=== PATIENT | female | born 1935 | race Caucasian/White ===

== ENCOUNTER → 2017-03-29 | Outpatient (CLI) | payer OTHER, MEDICAID | LOC: FIMAGING 11:29 | DX: Z12.31 Encounter for screening mammogram for malignant neoplasm of breast (principal) | CPT/HCPCS: G0202 ==

== ENCOUNTER 2018-02-14 16:21 | Inpatient (IN) | payer OTHER, MEDICAID ==
[2018-02-14] MEDS ORDERED: NS 500 ML IV ONE (16:25)
--- NOTE | 2018-02-14 16:31 | EDPHY ---
H & P Stated Complaint: sob/htn Time Seen by Provider: 02/14/18 16:25 HPI/ROS: CHIEF COMPLAINT: Shortness of breath, hypertension HISTORY OF PRESENT ILLNESS: The patient is an 82-year-old female with history of dimension bipolar and shtp-nm-yehjqih who is sent from the half-way according to paramedics for tachypnea and diaphoresis and high blood pressure. The patient denies having any chest pain or abdominal pain but does state that she feels slightly short of breath. She wears 2 L of oxygen at baseline and is satting 98% on 2 L. she denies recent fevers coughs. She he is a very poor historian. According to the medical record she does have a history of COPD and CVA and CHF. 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 REVIEW OF SYSTEMS: Constitutional: denies: chills, fever, recent illness, recent injury EENTM: denies: blurred vision, double vision, nose congestion Respiratory: denies: cough, shortness of breath Cardiac: denies: chest pain, irregular heart rate, lightheadedness, palpitations Gastrointestinal/Abdominal: denies: abdominal pain, diarrhea, nausea, vomiting, blood streaked stools Genitourinary: denies: dysuria, frequency, hematuria, pain Musculoskeletal: denies: joint pain, muscle pain Skin: denies: lesions, rash, jaundice, bruising Neurological: denies: headache, numbness, paresthesia, tingling, dizziness, weakness Hematologic/Lymphatic: denies: blood clots, easy bleeding, easy bruising Immunologic/allergic: denies: HIV/AIDS, transplant EXAM: GENERAL: obese and in no acute distress. HEAD: Atraumatic, normocephalic. EYES: Pupils equal round and reactive to light, extraocular movements intact, sclera anicteric, conjunctiva are normal. ENT: TMs normal, nares patent, oropharynx clear without exudates. Moist mucous membranes. NECK: Normal range of motion, supple without lymphadenopathy or JVD. LUNGS: Breath sounds clear to auscultation bilaterally and equal. No wheezes rales or rhonchi. HEART: Regular rate and rhythm without murmurs, rubs or gallops. ABDOMEN: Soft, nontender, normoactive bowel sounds. No guarding, no rebound. No masses appreciated. BACK: No CVA tenderness, no spinal tenderness, step-offs or deformities EXTREMITIES: Normal range of motion, no pitting or edema. No clubbing or cyanosis. NEUROLOGICAL: Cranial nerves II through XII grossly intact. Normal speech, normal gait. 5/5 strength, normal movement in all extremities, normal sensation PSYCH: Slightly confused, has difficulty answering most questions. SKIN: Warm, dry, normal turgor, no visible rashes or lesions. Source: Patient Exam Limitations: No limitations - Personal History Tetanus Vaccine Date: 2007 - Medical/Surgical History Hx Asthma: Yes Hx Chronic Respiratory Disease: Yes Hx Diabetes: No Hx Cardiac Disease: Yes Hx Renal Disease: Yes Hx Cirrhosis: No Hx Alcoholism: No Hx HIV/AIDS: No Hx Splenectomy or Spleen Trauma: No Other PMH: anemia, dementia, peripheral vascular disease, HTN, CKD, bipolar, GERD, CHF, COPD, asthma - Family History Significant Family History: No pertinent family hx - Social History Smoking Status: Unknown if ever smoked Alcohol Use: None Constitutional: Initial Vital Signs Temperature (C) 36.4 C 02/14/18 16:23 Heart Rate 77 02/14/18 16:23 Respiratory Rate 18 02/14/18 16:23 Blood Pressure 181/87 H 02/14/18 16:23 O2 Sat (%) 91 L 02/14/18 16:23 O2 Delivery Mode Nasal Cannula O2 (L/minute) 2 Allergies/Adverse Reactions: oxycodone HCl [From OxyContin] Allergy (Unknown, Verified 02/14/18 16:27) aspirin [Aspirin] Allergy (Verified 02/14/18 16:27) codeine [Codeine] Allergy (Verified 02/14/18 16:27) NSAIDS (Non-Steroidal Anti-Inflamma [Nsaids] Allergy (Verified 02/14/18 16:27) oxybutynin [Oxybutynin] Allergy (Verified 02/14/18 16:27) Medical Decision Making - Diagnostics EKG Interpretation: An EKG obtained and was read and documented in trace view. Please see trace view for full reading and report. Sinus rhythm, PVC, LVH, anterior fascicular block, poor baseline, similar to previous Imaging Results: Imaging Impressions Chest X-Ray 02/14/18 16:26 Impression: 1. Stable chest. 2. Possible abnormal abdominal bowel loops. If clinically indicated consider obtaining a two-view abdomen. Results discussed with Dr. Hidalgo. Chest/Thorax CTA 02/14/18 17:06 Impression: 1. Cardiomegaly and small pericardial effusion. 2. Multiple noncalcified pulmonary nodules involving multiple lobes bilaterally , largest measuring 7 x 7.5 mm in the superoposterior left upper lobe. The patient also has granulomas. These nodules are nonspecific. They may represent granulomas, inflammatory process, metastatic disease. Because the study is significantly degraded by patient motion, the nodules being part of a pulmonary edema process is also not excluded. It would be prudent to repeat a CT scan of the chest once acute clinical presentation has resolved. Findings and recommendations discussed with Darshan Hidalgo M.D., at 6:20 p.m. , on February 14, 2018. Final report concurs with initial preliminary interpretation. E:amm Imaging: Discussed imaging studies w/ commissioner of conciliation Radiologist ED Course/Re-evaluation: 4:50 p.m. the patient begins screaming "help me help me" if the she is left in the room alone. As soon as someone enters the room she denies having any complaints. If the doors closed she screams "do not close the door". 5:05 p.m. the patient tells me she feels fine and does not feel sick. Her D- dimer and troponin are elevated. I will obtain a CT scan and likely admit. 6:35 p.m. I discussed the case with Dr. Melita Prater who will admit for serial troponins and further workup. Differential Diagnosis: Partial list of the Differential diagnosis considered include but were not limited to; [] and although unlikely based on the history and physical exam, I also considered []. I discussed these differential diagnoses and the plan with the [patient] as well as the usual and expected course. The [patient understands] that the diagnosis is provisional and that in medicine we are not always correct and that further workup is often warranted. Usual and customary warnings were given. All of the [patient's] questions were answered. The [ patient was] instructed to return to the emergency department should the symptoms at all worsen or return, otherwise to followup with the physician as we discussed. - Data Points Laboratory Results: Laboratory Results 02/14/18 16:15 05/03/18 16:15 02/14/18 02/14/18 02/14/18 16:15 16:15 16:15 WBC 12.85 10^3/uL H 10^3/uL (3.80-9.50) RBC 3.75 10^6/uL L 10^6/uL (4.18-5.33) Hgb 11.1 g/dL L g/dL (12.6-16.3) Hct 35.1 % L % (38.0-47.0) MCV 93.6 fL fL (81.5-99.8) MCH 29.6 pg pg (27.9-34.1) MCHC 31.6 g/dL L g/dL (32.4-36.7) RDW 13.6 % % (11.5-15.2) Plt Count 224 10^3/uL 10^3/uL (150-400) MPV 10.3 fL fL (8.7-11.7) Neut % (Auto) 75.9 % H % (39.3-74.2) Lymph % (Auto) 17.3 % % (15.0-45.0) Alfalfa % (Auto) 5.4 % % (4.5-13.0) Eos % (Auto) 0.7 % % (0.6-7.6) Baso % (Auto) 0.3 % % (0.3-1.7) Nucleat RBC Rel Count 0.0 % % (0.0-0.2) Absolute Neuts (auto) 9.75 10^3/uL H 10^3/uL (1.70-6.50) Absolute Lymphs (auto) 2.22 10^3/uL 10^3/uL (1.00-3.00) Absolute Monos (auto) 0.70 10^3/uL 10^3/uL (0.30-0.80) Absolute Eos (auto) 0.09 10^3/uL 10^3/uL (0.03-0.40) Absolute Basos (auto) 0.04 10^3/uL 10^3/uL (0.02-0.10) Absolute Nucleated RBC 0.00 10^3/uL 10^3/uL (0-0.01) Immature Gran % 0.4 % % (0.0-1.1) Immature Gran # 0.05 10^3/uL 10^3/uL (0.00-0.10) PT 13.9 SEC SEC (12.0-15.0) INR 1.05 (0.83-1.16) APTT 31.4 SEC SEC (23.0-38.0) D-Dimer 5.13 ug/mLFEU H ug/mLFEU (0.00-0.50) Sodium 142 mEq/L mEq/L (135-145) Potassium 4.4 mEq/L mEq/L (3.5-5.2) Chloride 96 mEq/L L mEq/L (97-110) Carbon Dioxide 36 mEq/l H mEq/l (22-31) Anion Gap 10 mEq/L mEq/L (8-16) BUN 24 mg/dL H mg/dL (7-23) Creatinine 0.7 mg/dL mg/dL (0.6-1.0) Estimated GFR > 60 Glucose 213 mg/dL H mg/dL (70-100) Calcium 9.0 mg/dL mg/dL (8.5-10.4) Troponin I 0.072 ng/mL H ng/mL (0.000-0.034) NT-Pro-B Natriuret Pep 771 pg/mL H pg/mL (0-450) Medications Given: Discontinued Medications Sodium Chloride (Ns) 500 mls @ 1,000 mls/hr IV EDNOW ONE PRN Reason: Protocol Stop: 02/14/18 16:54 Last Admin: 02/14/18 16:31 Dose: 500 mls Lorazepam (Ativan Injection) 1 mg IVP EDNOW ONE Stop: 02/14/18 18:01 Last Admin: 02/14/18 18:02 Dose: 1 mg Departure - Departure Disposition: [facility] Acute Clinical Impression: Elevated troponin Condition: Fair
[2018-02-14 16:41] LABS: PLATELET COUNT 224 10^3/uL (150-400)
--- NOTE | 2018-02-14 16:41 | CPEKG ---
Heart Rate: 77 RR Interval: 779 P-R Interval: 209 QRSD Interval: 110 QT Interval: 428 QTC Interval: 485 P Fabens: 0 QRS Fabens: -62 T Wave Fabens: 94 EKG Severity - ABNORMAL ECG - EKG Impression: SINUS RHYTHM EKG Impression: VENTRICULAR PREMATURE COMPLEX EKG Impression: LEFT ANTERIOR FASCICULAR BLOCK EKG Impression: LEFT VENTRICULAR HYPERTROPHY EKG Impression: Similar to previous, poor baseline Electronically Signed By: Darshan Hidalgo 14-Feb-2018 17:10:57
[2018-02-14 16:50] LABS: INR 1.05 (0.83-1.16); PROTIME(PATIENT) 13.9 SEC (12.0-15.0)
[2018-02-14] MEDS ORDERED: IOPAMIDOL (ISOVUE 370) 100 ML BTL IV ONE (17:26)
[2018-02-14] MEDS ORDERED: LORazepam 2 MG/ML INJ ONE (17:51)
[2018-02-14] MEDS ORDERED: LORazepam 2 MG/ML INJ IVP ONE (18:00)
[2018-02-14] MEDS ORDERED: ACETAMINOPHEN 325 MG TAB PO PRN (20:41)
[2018-02-14] MEDS ORDERED: ONDANSETRON 4 MG/2 ML VIAL IVP PRN (20:41)
[2018-02-14] MEDS ORDERED: hydrALAZINE 20 MG/ML VIAL IVP PRN (20:42)
[2018-02-14] MEDS ORDERED: D50W 25 GM/50 ML VIAL IVP PRN (20:42)
[2018-02-14] MEDS ORDERED: FUROSEMIDE 20 MG/2 ML VIAL IVP ONE (20:45)
[2018-02-14] MEDS ORDERED: traMADol 50 MG TAB PO PRN (20:45)
[2018-02-14] MEDS: CARBOXYMETHYLCELLULOSE 1% 0.4 ML DROPERETTE OP SCH (21:29)
[2018-02-14] MEDS: DILTIAZEM 30 MG TAB PO SCH (21:29)
[2018-02-14] MEDS: ATORVASTATIN CALCIUM 20 MG TAB PO SCH (21:29)
[2018-02-14] MEDS: risperiDONE 1 MG TAB PO SCH (21:30)
--- NOTE | 2018-02-14 21:31 | GHP ---
[f rep st] HISTORY AND PHYSICAL DATE OF ADMISSION: 02/14/2018 CHIEF COMPLAINT: Shortness of breath. HISTORY: The patient is an 82-year-old [facility] resident at [facility]. They sent her to the em ergency room for shortness of breath. They also reported diaphoresis and blood pressures above her n ormal baseline. The patient is a poor historian due to her advanced dementia. She states she has vazquez d shortness of breath for 3 days, but cannot give any further history. She denies any chest pain. H er baseline oxygen requirement is 2 L. PAST MEDICAL HISTORY: 1. Stroke. 2. COPD, on 2 L. 3. Dementia. 4. Diabetes type 2. 5. Congestive heart failure. 6. Bipolar. MEDICATIONS: Please see computer record for the full detailed list. ALLERGIES: Oxycodone. SOCIAL HISTORY: No smoking. No alcohol. Lives at [facility]. MOLST form from [facility] states fu ll code. REVIEW OF SYSTEMS: A complete review of systems was obtained. The review of systems was negative on constitutional, HEENT, GI, pulmonary, cardiovascular, , hematology, skin, muscular, endocrine, and psych except for positives and negatives as in the HPI. FAMILY HISTORY: Reviewed and noncontributory to the presenting complaint. PHYSICAL EXAMINATION: GENERAL: Well-developed, well-nourished female, in no acute distress. VITAL SIGNS: Temperature 36.4, pulse 77, blood pressure 166/90, satting 95% on 2 L. EYES: Normal conjunc tivae. Pupils react to light. ENT: Normal ears and nose. Hearing intact. Normal teeth. Orophary nx moist. NECK: Trachea midline. No thyromegaly. CHEST: Normal effort. LUNGS: Clear to auscult ation bilaterally. CARDIOVASCULAR: Regular rhythm. No murmur. No lower extremity edema. ABDOMEN: Soft, nontender. No hepatosplenomegaly. SKIN: Warm, dry, intact. No rash. MUSCULOSKELETAL: No cyanosis or clubbing. Strength 5/5 in the upper and lower extremities. NEUROLOGIC: Cranial nerves intact. Normal sensation to light touch. PSYCHIATRIC: She is awake, alert, pleasant, and cooperat robert, but confused. Demented. Poor judgment and insight. Poor memory. LABORATORY DATA: White count 12.8, hematocrit 35.1, platelets 224. Sodium 142, potassium 4.4, chlor sven 96, bicarb 36, BUN 24, creatinine 0.7, glucose 213. Troponin is 0.072. BNP is 771. D-dimer is 5. INR is 1.05. EKG reviewed by me. My personal interpretation is a normal sinus rhythm and LVH. No acute ST or T-wave changes. Chest x-ray shows poor inspiration. Possible pulmonary edema. CT an giogram of the chest shows pulmonary nodules. Differential is infection versus pulmonary edema versu s metastases. ASSESSMENT AND PLAN: 1. Shortness of breath. Differential diagnosis is pulmonary edema versus anginal equivalent versus infection. I will give her an IV Lasix dose x1. We will follow serial troponins and check an echoca rdiogram. We will check a respiratory PCR. 2. Pulmonary nodules. Differential remains broad. Metastasis is in the differential. Since I saw her in the ER, it appears the ER had ordered a CT scan of the abdomen and pelvis, which has been perf ormed. It unclear to me what was the indication. Regardless, we can see on that CAT scan if there i s any further finding suggestive of malignancy. Recommendation is repeat CT scan of the chest when s he is clinically improved. 3. Troponin elevation. We will follow these serially. She is a poor interventional candidate. We will continue her medical management with Plavix, Coreg, and statin. 4. Diabetes type 2. Continue Lantus plus sliding scale insulin. 5. Chronic obstructive pulmonary disease. 2 L baseline. She denies ever being a smoker. I suspect there is also an element of obesity hypoventilation syndrome and her chronic respiratory failure. 6. Dementia, advanced. She is a very poor historian. 7. Hypertension. We will resume her home medications and follow closely to see if any titration nee ds to be adjusted. CODE STATUS: Full according to MOLST form. ADMISSION STATUS: 1. Observation. Re-evaluate tomorrow for ongoing need for hospitalization. 2. DVT prophylaxis. She is high risk. We will place on subcu Lovenox. /[id number]/MODL
[2018-02-14] MEDS: INSULIN REGULAR HUMAN 100 UNIT/ML UNIT SC SCH (22:32)
[2018-02-15 06:24] LABS: PLATELET COUNT 177 10^3/uL (150-400)
[2018-02-15] MEDS: SENNOSIDES/DOCUSATE SODIUM TAB PO SCH (10:24)
[2018-02-15] MEDS: VENLAFAXINE XR 150 MG CAP PO SCH (10:24)
[2018-02-15] MEDS: risperiDONE 1 MG TAB PO SCH ×2 (10:25→21:26)
[2018-02-15] MEDS: DILTIAZEM 30 MG TAB PO SCH ×2 (10:25→21:25)
[2018-02-15] MEDS: FUROSEMIDE 20 MG TAB PO SCH (10:26)
[2018-02-15] MEDS: CLOPIDOGREL BISULFATE 75 MG TAB PO SCH (10:26)
[2018-02-15] MEDS: CYANO/VITAMIN B12 1000 MCG TAB PO SCH (10:27)
[2018-02-15] MEDS: CARBOXYMETHYLCELLULOSE 1% 0.4 ML DROPERETTE OP SCH ×4 (10:27→21:26)
--- NOTE | 2018-02-15 10:27 | ECHO ---
[email or web address] [address] [address] Main: [phone] Fax: Transthoracic Echocardiogram Name: FRANCIE HATCH MR#: [id number] Study Date: 02/15/2018 Study Time: 06:44 AM Date of : 1935 Age: 82 year(s) Height: 162.6 cm (64 in.) Weight: 90.72 kg (200 lb.) BSA: 1.96 m2 Gender: Female Examination: Echo Indication: Shortness of breath, positive troponin Image Quality: Technically Difficult Contrast: Requested by: Melita Prater BP: 141 mmHg/52 mmHg Heart Rate: Rhythm: Normal sinus rhythm Indication: Shortness of breath, positive troponin Procedure Staff Windows Mobile Developer: Madonna Hassan [facility] Reading Physician: Manjeet Nair MD Requesting Provider: Conclusions: Concentric LV hypertrophy. Normal global systolic LV function. EF is 71 %. Grossly normal Mitral valve, no stenosis and no significant regurgitation. Cannot rule out bicuspid aortic valve. Mild calcific aortic valve stenosis. Small to moderate pericardial effusion. No echocardiographic evidence of hemodynamic compromise. Measurements: Chambers Valvular Assessment AV/MV Valvular Assessment TV/PV Normal Normal Normal Name Value Range Name Value Range Name Value Range Ao Natacha (MM): 2.6 cm (2.2 cm-3.7 AV Vmax: 2.47 m/s (1 m/s-1.7 PV Vmax: 1.57 m/s (0.6 m/s-0.9 cm) m/s) m/s) IVSd (2D): 1.0 cm (0.6 cm-1.1 AV maxP mmHg ( - ) PV PGmax: 10 mmHg ( - ) cm) AV meanP mmHg ( - ) LVDd (2D): 4.2 cm (3.9 cm-5.3 NIKITA (VTI): 1.0 cm ( - ) cm) MV E Vmax: 0.76 m/s ( - ) LVDs (2D): 2.5 cm (2.1 cm-4 MV A Vmax: 1.32 m/s ( - ) cm) MV E/A: 0.58 ( - ) LVPWd (2D): 1.0 cm ( - ) LVOTd 2.0 cm 2.0 cm mm LVEF (2D): 71 (>=54 %) Continued Measurements: Additional Vessels Patient: FRANCIE HATCH Study Date: 02/15/2018 Page 1 of 2 06:44 AM Name Value Ao Ascendin.1 cm Findings: Left Ventricle: Normal size left ventricle. Concentric LV hypertrophy. Normal global systolic LV function. EF is 71 %. Cannot rule out wall motion abnormalities due to poor acoustical window.. Right Ventricle: Normal size right ventricle. Normal RV function. Left Atrium: The left atrium is mildly dilated. Right Atrium: The right atrium is normal in size. Mitral Valve: Grossly normal Mitral valve, no stenosis and no significant regurgitation. Aortic Valve: Cannot rule out bicuspid aortic valve. Moderate aortic cusp calcification is present. There is no significant aortic valve regurgitation. Mean aortic valve gradient 17. Mild calcific aortic valve stenosis. Tricuspid Valve: Tricuspid valve not well visualized. There is no tricuspid valve regurgitation. Pulmonary artery pressure is not obtained due to inadequate TR jet. Pulmonic Valve: Pulmonary valve not well visualized. Aorta: The aorta is normal. Normal size aortic root measuring 2.6 cm. Normal size ascending aorta measuring 2.1 cm. Pericardium: Small to moderate pericardial effusion. No echocardiographic evidence of hemodynamic compromise. (No Signature Object) Patient: FRANCIE HATCH Study Date: 02/15/2018 Page 2 of 2 06:44 AM [id number]
[2018-02-15] MEDS: INSULIN REGULAR HUMAN 100 UNIT/ML UNIT SC SCH ×4 (10:28→21:27)
[2018-02-15] MEDS: ENOXAPARIN 40 MG/0.4 ML SYR SC SCH (10:28)
[2018-02-15] MEDS: traMADol 50 MG TAB PO SCH ×2 (10:32→18:31)
[2018-02-15] MEDS: CARVEDILOL 6.25 MG TAB PO SCH ×2 (10:33→18:31)
[2018-02-15] MEDS: INSULIN GLARGINE 100 UNITS/ML UNIT SC SCH (12:34)
--- NOTE | 2018-02-15 14:26 | HOSPPROG ---
Hospitalist Progress Note Assessment/Plan: # acute hypoxic respiratory failure- patient's symptomatically improved this morning Chest x-ray ( personally reviewed and interpreted) pulmonary edema - CT chest -no pulmonary embolism - responded well to IV push Lasix overnight - continue home p.o. Lasix today - transthoracic echocardiogram pending # indeterminate troponin- patient denies chest pain- EKG without acute changes Agree patient poor interventional candidate- continue med management - continue Plavix, statin, Coreg - monitor on telemetry # COPD- no clinical indicators of acute exacerbation- no wheezing on examination -p.r.n. Bronchodilators # baseline dementia # pulmonary nodules- seen on CT chest imaging will need outpatient radiographic follow-up # prophylaxis Lovenox # diet regular # disposition- greater than 2 midnights as the patient requires ongoing diagnostic workup and care for hypoxia I have discussed the case with the RN we are awaiting transthoracic echocardiogram results - continue current care Subjective: Denies chest pain Objective: Vital Signs Temp Pulse Resp BP Pulse Ox 36.4 C 83 20 157/66 H 97 02/15/18 11:30 02/15/18 11:30 02/15/18 11:30 02/15/18 11:30 02/15/18 11:30 Microbiology 02/14/18 21:30 Respiratory Panel (PCR) - Final Nasal, Sinus - Eswab No Organism Detected Laboratory Results 02/15/18 06:08 02/15/18 06:08 02/14/18 02/15/18 02/16/18 05:59 05:59 05:59 Intake Total 1000 340 Balance 1000 340 PT 13.9 SEC (12.0-15.0) 02/14/18 16:15 INR 1.05 (0.83-1.16) 02/14/18 16:15 - Physical Exam Constitutional: chronically ill appearing Eyes: anicteric sclera Ears, Nose, Mouth, Throat: moist mucous membranes Cardiovascular: regular rate and rhythym, systolic murmur Respiratory: no respiratory distress Gastrointestinal: normoactive bowel sounds Genitourinary: no bladder fullness Skin: warm Musculoskeletal: No asymmetric calves Neurologic: No AAOx3 Psychiatric: poor memory Lymph, Heme, Immunologic: no cervical LAD ICD10 Worksheet Patient Problems: Problems Problem Status Onset Elevated troponin Acute
[2018-02-15] MEDS ORDERED: IPRATROPIUM/ALBUTEROL 3 ML DEYVIAL IH PRN (14:28)
--- NOTE | 2018-02-15 14:32 | ASMTCASEMG ---
Living Arrangements What is your living Answers: Alone arrangement? Who do you live with? Type Of Residence What kind of residence do Answers: [facility] Facility you live in? Type of Residence Facility Name Notes: [facility] Discharge Plan Comments Coordination Status Comments Notes: Pts case discussed in tx rounds. Pt is a 82 y/o female admitted for shortness of breath and troponin elevation. Pt is having an echo today. OT has been ordered. PT is a LTC pt at [facility]. Updates sent to [facility]. CM to follow. Plan: [facility] Date Signed: 02/15/2018 02:32 PM Electronically Signed By:RIN Adan
--- NOTE | 2018-02-15 15:26 | PDMN ---
Medical Necessity Medical necessity: Patient transitioned to inpatient status per physician note and per CMS guidelines: LOS will be > 2 midnights for ongoing diagnostic workup and care for hypoxia; TTE pending, transition from IV to p.o Lasix; ongoing Plavix, statin, Coreg and telemetry for indeterminate troponin in patient who is poor interventional candidate.)
[2018-02-15] MEDS: ATORVASTATIN CALCIUM 20 MG TAB PO SCH (21:25)
[2018-02-16] MEDS: CARBOXYMETHYLCELLULOSE 1% 0.4 ML DROPERETTE OP SCH ×3 (06:22→16:49)
[2018-02-16] MEDS: INSULIN REGULAR HUMAN 100 UNIT/ML UNIT SC SCH ×2 (07:59→11:48)
[2018-02-16] MEDS: INSULIN GLARGINE 100 UNITS/ML UNIT SC SCH (08:00)
[2018-02-16] MEDS: VENLAFAXINE XR 150 MG CAP PO SCH (08:00)
[2018-02-16] MEDS: FUROSEMIDE 20 MG TAB PO SCH (08:00)
[2018-02-16] MEDS: ENOXAPARIN 40 MG/0.4 ML SYR SC SCH (08:00)
[2018-02-16] MEDS: CYANO/VITAMIN B12 1000 MCG TAB PO SCH (08:01)
[2018-02-16] MEDS: CARVEDILOL 6.25 MG TAB PO SCH (08:01)
[2018-02-16] MEDS: CLOPIDOGREL BISULFATE 75 MG TAB PO SCH (08:01)
[2018-02-16] MEDS: risperiDONE 1 MG TAB PO SCH (08:04)
[2018-02-16] MEDS: DILTIAZEM 30 MG TAB PO SCH (08:04)
[2018-02-16] MEDS: SENNOSIDES/DOCUSATE SODIUM TAB PO SCH (08:05)
[2018-02-16] MEDS: traMADol 50 MG TAB PO SCH ×2 (08:05→16:49)
--- NOTE | 2018-02-16 13:09 | PDIAF ---
- Diagnosis Diagnosis: CHF exac Code Status: Full Code - Medication Management Discharge Medications: Medications to Continue on Transfer Acetaminophen [Tylenol 325mg (*)] 650 mg PO Q4 PRN 02/14/18 [Last Taken Unknown] Albuterol [Proventil Inhaler HFA (*)] 2 puffs IH Q6 PRN 02/14/18 [Last Taken Unknown] Atorvastatin Calcium 20 mg PO HS 02/14/18 [Last Taken Unknown] Bisacodyl [Dulcolax] 10 mg RC DAILY PRN 02/14/18 [Last Taken Unknown] Carboxymethylcellulose 1% [Refresh Celluvisc (*)] 2 drop OP QID 02/14/18 [Last Taken Unknown] Carvedilol 6.25 mg PO BIDMEAL 02/14/18 [Last Taken Unknown] Cholecalciferol Vit D3 [Vitamin D3 (*)] 50,000 unit PO Q30D 02/14/18 [Last Taken 02/12/18] Clopidogrel Bisulfate [Clopidogrel] 75 mg PO DAILY 02/14/18 [Last Taken Unknown] Cyanocobalamin [Vitamin B12 (*)] 1,000 mcg PO DAILY 02/14/18 [Last Taken Unknown ] Dextrose Oral Gel [Glucose Gel (*)] 15 gm PO Q1 PRN 02/14/18 [Last Taken Unknown ] Diltiazem [Cardizem Ir Q6hr] 30 mg PO BID 02/14/18 [Last Taken Unknown] Glucagon,Human Recombinant [Glucagon Emergency Kit] 1 mg IJ ONCE PRN 02/14/18 [ Last Taken Unknown] Insulin Detemir [Levemir] 6 unit SQ DAILY 02/14/18 [Last Taken Unknown] Magnesium Hydroxide [Milk of Magnesia] 30 ml PO DAILY PRN 02/14/18 [Last Taken Unknown] Meclizine HCl [Meclizine HCl 25 mg (RX,OTC)] 25 mg PO Q4 PRN 02/14/18 [Last Taken Unknown] Multivitamins [Multivitamin (*)] 1 each PO DAILY 02/14/18 [Last Taken Unknown] Nystatin [Nystop] 1 johanna TP BID PRN 02/14/18 [Last Taken Unknown] Polyethylene Glycol 3350 [Miralax 17 gm (*)] 17 gm PO DAILY PRN 02/14/18 [Last Taken Unknown] Sennosides/Docusate Sodium [Senna-S Tablet] 2 each PO DAILY 02/14/18 [Last Taken Unknown] Venlafaxine Xr [Effexor Xr] 150 mg PO DAILY 02/14/18 [Last Taken Unknown] risperiDONE [Risperdal 0.5mg (*)] 0.5 mg PO DAILY 02/14/18 [Last Taken Unknown] risperiDONE [Risperdal 1mg (*)] 1 mg PO HS 02/14/18 [Last Taken Unknown] traMADol HCL [Tramadol HCl] 50 mg PO BID@0800,1700 02/14/18 [Last Taken Unknown] traMADol HCL [Tramadol HCl] 50 mg PO Q6 PRN 02/14/18 [Last Taken Unknown] Furosemide [Lasix 40 MG (*)] 40 mg PO DAILY #30 tab 02/16/18 [Last Taken Unknown ] Discharge Medications: Refer to the Discharge Home Medication list for PRN reason. - Orders Diet Recommendation: sodium restricted Additional Instructions: Repeat CT chest in 3 months - Follow Up Care Current Providers and Referrals: NISHA KUNZ [Other] - As per Instructions
--- NOTE | 2018-02-16 13:29 | GDS ---
[f rep st] DISCHARGE SUMMARY DISCHARGE DIAGNOSES: 1. Sjonm-zk-jlrhjzv diastolic congestive heart failure. 2. Bilateral pulmonary nodules. 3. Borderline troponin elevation. 4. Mhfyb-uq-zxhutqin pericardial effusion. 5. Diabetes, type 2. 6. Chronic obstructive pulmonary disease, 2 L. 7. Advanced dementia. 8. Hypertension. HISTORY: Carmela is an 82-year-old female, [facility] resident, with advanced dementia, who complains of shortness of breath and was sent to the emergency room. History is limited due to the patient's dementia. She was thought to have some mild diastolic congestive heart failure and improved with demarcus e IV Lasix. I will increase her usual home Lasix dose from 20 to 40 mg p.o. daily. She had a CT ang iogram of the chest that was negative for PE. Incidentally noted were some pulmonary nodules which c an be followed up as an outpatient. Echocardiogram was relatively unremarkable, except for a small-t o-moderate pericardial effusion. This is of unclear significance, as she otherwise did not have any signs or symptoms of pericarditis. She is felt to be back to baseline at the time of discharge. DISCHARGE MEDICATIONS: Please see computerized record for full detailed list. New medications: Lasix increased from 20 to 40 mg p.o. daily. ADDITIONAL DISCHARGE INSTRUCTIONS: 1. Return to [facility] for further long-term care. 2. Repeat CT scan of chest in 3 months. Greater than 30 minutes' time was spent arranging this discharge. Patient was seen and examined by cruz forbes on the day of discharge. /[id number]/MODL
[2018-02-16 15:04] VITALS: BP 129/51
--- NOTE | 2018-02-16 17:14 | ASMTLACE ---
LACE Length of stay for Answers: 2 days current admission Comorbidities - select Answers: Cerebrovascular disease all that apply (CVA, TIA, aneurysms, vasc ular dementia) Chronic pulmonary disease Congestive heart failure Dementia Peripheral vascular disease Other Notes: HTN; CKD # of Emergency department Answers: 1-2 visits in the last 6 months Social determinants Answers: Mental health diagnosis (anxiety, depression, pers onality disorders, etc.) Score: 16 Date Signed: 02/16/2018 05:13 PM Electronically Signed By:Kajal Estevez RN
--- NOTE | 2018-02-16 17:17 | ASDISCHSUM ---
Discharge Information Plan Status:SNF Medically Cleared to Leave: Discharge Date:02/16/2018 05:13 PM D/C Disposition:Group Home Facility ADT D/C Disposition:Group Home Facility Projected Discharge Date:02/16/2018 11:00 AM Transportation at D/C:ALS/BLS Discharge Delay Reason: Follow-Up Date:02/16/2018 11:00 AM Discharge Slot: Final Diagnosis: Placement Information Referral Type:*Residential/SNF Referral ID:[id number] Provider Name:[facility] Address 1:[address] [place] [address] Address 2: City:[place] Selection Factors: State:[place] Patient Contact Information Contact Name:PITO Relationship:Other Address:[address] [place] [address] Work Phone: City:[place] Alternate Phone: State/Zip Code:[place] [address] Email: Financial Information Financial Class:Medicare Advantage Plans Primary Plan Desc:Anywhere to Go Primary Plan Number:[id number] Secondary Plan Desc:MED[place] Secondary Plan Number:[id number] Assessment Information LACE LACE Length of stay for Answers: 2 days current admission Comorbidities - select Answers: Cerebrovascular disease all that apply (CVA, TIA, aneurysms, vasc ular dementia) Chronic pulmonary disease Congestive heart failure Dementia Peripheral vascular disease Other Notes: HTN; CKD # of Emergency department Answers: 1-2 visits in the last 6 months Social determinants Answers: Mental health diagnosis (anxiety, depression, pers onality disorders, etc.) Score: 16 Date Signed: 02/16/2018 05:13 PM Electronically Signed By:Kajal Estevez RN [facility] Initial CM Assessment Living Arrangements What is your living Answers: Alone arrangement? Who do you live with? Type Of Residence What kind of residence do Answers: Group Home Facility you live in? Type of Residence Facility Name Notes: [facility] Discharge Plan Comments Coordination Status Comments Notes: Pts case discussed in tx rounds. Pt is a 82 y/o female admitted for shortness of breath and troponin elevation. Pt is having an echo today. OT has been ordered. PT is a LTC pt at [facility]. Updates sent to [facility]. CM to follow. Plan: [facility] Date Signed: 02/15/2018 02:32 PM Electronically Signed By:RIN Adan Case Management Discharge Plan Note Case Management Discharge Discharge Order Complete? Answers: Yes Patient to Obtain Answers: Other Notes: [facility] Medications Transportation Arranged Answers: [facility] will Pick (Date 02/16/2018 04:30 AM & Time) Case Management Transport Answers: Yes Form Complete Discharge Comments Notes: Pt will dc back to [facility] where she is LTC resident. Notified Nancy at and they are ready to accept back. Orders/info sent through [employer]. Discussed w/RN who will call report to . Date Signed: 02/16/2018 02:28 PM Electronically Signed By:Kajal Estevez RN Intervention Information
== END 2018-02-16 17:13 | DRG 291 ==
LOC: EDUNIT# → OBSVTOIN 18:35 → F2W 19:45
PROVIDERS: ADMIT Internal Medicine; ATTEND Internal Medicine
DX: I13.0 Hypertensive heart and chronic kidney disease with heart failure and stage 1 through stage 4 chronic kidney disease, or unspecified chronic kidney disease (principal); I50.33 Acute on chronic diastolic (congestive) heart failure; N18.9 Chronic kidney disease, unspecified; J96.01 Acute respiratory failure with hypoxia; E11.51 Type 2 diabetes mellitus with diabetic peripheral angiopathy without gangrene; I73.9 Peripheral vascular disease, unspecified; K21.9 Gastro-esophageal reflux disease without esophagitis; F03.90 Unspecified dementia, unspecified severity, without behavioral disturbance, psychotic disturbance, mood disturbance, and anxiety; R91.8 Other nonspecific abnormal finding of lung field; F31.9 Bipolar disorder, unspecified; Z86.73 Personal history of transient ischemic attack (TIA), and cerebral infarction without residual deficits; Z99.81 Dependence on supplemental oxygen
CPT/HCPCS: 96374; 97161-GP; G0378; G8978-GP-CM; G8979-GP-CM; G8980-GP-CM; J1650; J1815; J1940; J2060; Q9967

== ENCOUNTER 2018-10-17 05:26 | Inpatient (IN) | payer OTHER, MEDICAID ==
--- NOTE | 2018-10-17 05:39 | EDPHY ---
H & P Time Seen by Provider: 10/17/18 05:39 HPI/ROS: HPI CHIEF COMPLAINT: Hypertension, shortness of breath, from [facility] HISTORY OF PRESENT ILLNESS: 83-year-old female, advanced dementia history of diabetes, COPD, advanced dementia, diastolic heart failure presents emergency for [facility]. She is a full code. She presents for shortness of breath and hypertension. Upon arrival it is noted that her blood pressure is 214/110. Heart rate 101. Pulse ox 95% 2 L She arrives to emergency room stating nothing is wrong. When asking the patient questions she does move everything appropriately however she states "I WISH YOU WOULD STOP YELLING AT ME" Past Medical History: COPD, advance dementia, hypertension, diabetes, diastolic heart failure Past Surgical History: No recent surgery Social History: Resides at [facility]. Advanced dementia Family History: Noncontributory ROS REVIEW OF SYSTEMS: 10 Systems were reviewed and negative with the exception of the elements mentioned in the history of present illness. Exam Constitutional elderly, nontoxic, slow to respond, triage nursing summary reviewed, vital signs reviewed, awake/alert. Hypertensive upon arrival. Eyes normal conjunctivae and sclera, EOMI, PERRLA. HENT normal inspection, atraumatic, moist mucus membranes, no epistaxis, neck supple/ no meningismus, no raccoon eyes. Respiratory clear to auscultation bilaterally, normal breath sounds, no respiratory distress, no wheezing. Cardiovascular rate normal, regular rhythm, no murmur, no edema, distal pulses normal. Gastrointestinal soft, non-tender, no rebound, no guarding, normal bowel sounds, no distension, no pulsatile mass. Genitourinary no CVA tenderness. Musculoskeletal no midline vertebral tenderness, full range of motion, no calf swelling, no tenderness of extremities, no meningismus, good pulses, neurovascularly intact. Skin pink, warm, & dry, no rash, skin atraumatic. Neurologic alert or x1, slow to respond, moves all 4 extremities equally, motor intact, sensory intact, CN II-XII intact, normal cerebellar, normal vision , normal speech. Psychiatric normal mood/affect. Heme/Lymph/Immune no lymphadenopathy. Differential Diagnosis: Includes but is not limited to in a particular order hypertension urgency, pneumonia, COPD, CHF, volume overload, PE Medical Decision Making: Plan for this patient IV establishment, cardiac nurse specialist, oxygen, DuoNeb breathing treatment, IV hydralazine for hypertension supplemental oxygen re-evaluation. Re-evaluation: Chest x-ray reviewed, cardiomegaly. EKG interpretation by me on record in [employer] system. Impression time of EKG 5:53 a.m., sinus rhythm rate of 98 LVH right bundle-branch block, left anterior fascicular block no acute ischemia. Fluids held. Concern for congestive heart failure. Hypertension. D-dimer elevated 7.69. In the setting of shortness of breath, fever, hypoxia with an elevated D-dimer at 7.[address] angiogram chest. Troponin negative BNP: Elevated. IV Lasix ordered. Fluids have been held. Plan for admission for hypoxia, CHF, elevated D-dimer. 0720AM: 83-year-old female here in emergency room shortness of breath, hypertension. Patient's hypertension has improved with IV Lasix IV hydralazine Noted D-dimer is elevated 7.69 CT angiogram of the chest is pending. I have consult the hospitalist service spoke with Gracie, Who would like to admit patient to Dr. jameson. Plan for admission PCU telemetry monitoring. CT angiogram pending at time of admission. CT angiogram results called to me by Dr. Garcia this shows no evidence of PE. However shows the following Right lower lobe pneumonia Bronchitis with mucus plugging Pleural effusion right lower lobe Pericardial effusion small Pulmonary nodule stable from previous CT Plan for this patient she is here with hypertension, hypoxia appears to be volume overloaded, additionally has a right lower lobe atelectasis versus pneumonia. Blood cultures have been pulled. IV Levaquin ordered Patient be admitted to the hospitalist service for further evaluation. Dr. Jameson accepts. Source: Patient, EMS - Personal History Tetanus Vaccine Date: 2007 - Medical/Surgical History Hx Asthma: Yes Hx Chronic Respiratory Disease: Yes Hx Diabetes: No Hx Cardiac Disease: Yes Hx Renal Disease: Yes Hx Cirrhosis: No Hx Alcoholism: No Hx HIV/AIDS: No Hx Splenectomy or Spleen Trauma: No Other PMH: anemia, dementia, peripheral vascular disease, HTN, CKD, bipolar, GERD, CHF, COPD, asthma - Social History Smoking Status: Unknown if ever smoked Constitutional: Initial Vital Signs O2 Sat (%) 94 10/17/18 05:43 O2 Delivery Mode Nasal Cannula O2 (L/minute) 2 Allergies/Adverse Reactions: oxycodone HCl [From OxyContin] Allergy (Unknown, Verified 10/17/18 05:47) aspirin [Aspirin] Allergy (Verified 10/17/18 05:47) codeine [Codeine] Allergy (Verified 10/17/18 05:47) NSAIDS (Non-Steroidal Anti-Inflamma [Nsaids] Allergy (Verified 10/17/18 05:47) oxybutynin [Oxybutynin] Allergy (Verified 10/17/18 05:47) Home Medications: Medication Instructions Recorded Acetaminophen [Tylenol 325mg (*)] 650 mg PO Q4 PRN 02/14/18 Albuterol [Proventil Inhaler HFA 2 puffs IH Q6 PRN 02/14/18 (*)] Bisacodyl [Dulcolax] 10 mg RC DAILY PRN 02/14/18 Carboxymethylcellulose 1% [Refresh 1 drop OP DAILY PRN 02/14/18 Celluvisc (*)] Carvedilol 6.25 mg PO BIDMEAL 02/14/18 Cholecalciferol Vit D3 [Vitamin D3 50,000 unit PO Q30D 02/14/18 (*)] Clopidogrel Bisulfate [Clopidogrel] 75 mg PO DAILY 02/14/18 Dextrose Oral Gel [Glucose Gel (*)] 15 gm PO Q1 PRN 02/14/18 Glucagon,Human Recombinant 1 mg IJ ONCE PRN 02/14/18 [Glucagon Emergency Kit] Insulin Detemir [Levemir] 6 unit SQ DAILY 02/14/18 Magnesium Hydroxide [Milk of 30 ml PO DAILY PRN 02/14/18 Magnesia] Nystatin [Nystop] 1 johanna TP BID PRN 02/14/18 Polyethylene Glycol 3350 [Miralax 17 gm PO DAILY PRN 02/14/18 17 gm (*)] Sennosides/Docusate Sodium 2 each PO DAILY 02/14/18 [Senna-S Tablet] Venlafaxine Xr [Effexor Xr] 150 mg PO DAILY 02/14/18 Furosemide [Lasix 40 MG (*)] 40 mg PO DAILY #30 tab 02/16/18 Ativan Solution 2mg/Ml 0.25 ml PO BID PRN 10/17/18 Atorvastatin Calcium [Lipitor 10 10 mg PO DAILY 10/17/18 mg (*)] Benzocaine/Menthol 15/4 [Cepacol 1 mg PO Q4HRS PRN 10/17/18 Lozenge (OTC)] Carboxymethylcellulose 1% [Refresh 2 drop EACHEYE QID 10/17/18 Celluvisc (*)] Diltiazem [Cardizem Immediate 30 mg PO BID 10/17/18 Release] Furosemide [Lasix 20 MG (*)] 20 mg PO DAILY PRN 10/17/18 Herbals/Supplements -Info Only 1 ea PO DAILY 10/17/18 Lisinopril [Zestril 2.5 mg (*)] 2.5 mg PO DAILY 10/17/18 Morphine Sulfate 20mg/Ml Galilea 0.25 ml PO BID 10/17/18 Morphine Sulfate 20mg/Ml Galilea 0.25 ml PO Q4HRS PRN 10/17/18 OLANZapine [Zyprexa] 5 mg PO HS 10/17/18 morphINE SR [Ms Contin/Oramorph 15 15 mg PO HS 10/17/18 mg (*)] Medical Decision Making - Data Points Laboratory Results: Laboratory Results 10/17/18 05:45 10/17/18 05:45 Medications Given: Acetaminophen (Tylenol) 650 mg PO Q4HRS PRN PRN Reason: Pain, Mild/Fever, Can Take PO Stop: 04/15/19 08:16 Last Admin: 10/17/18 09:21 Dose: 650 mg Atorvastatin Calcium (Lipitor) 10 mg PO DAILY [facility] Stop: 04/16/19 08:59 Last Admin: 10/19/18 08:35 Dose: 10 mg Carboxymethylcellulose (Refresh Celluvisc) 2 drop EACHEYE QID [facility] Stop: 04/15/19 15:59 Last Admin: 10/19/18 20:12 Dose: 2 drop Carvedilol (Coreg) 6.25 mg PO BIDMEAL [facility] Stop: 04/15/19 17:59 Last Admin: 10/19/18 17:21 Dose: 6.25 mg Clopidogrel Bisulfate (Plavix) 75 mg PO DAILY [facility] Stop: 04/16/19 08:59 Last Admin: 10/19/18 08:35 Dose: 75 mg Diltiazem HCl (Cardizem Immediate Release) 30 mg PO BID [facility] Stop: 04/15/19 20:59 Last Admin: 10/19/18 20:12 Dose: 30 mg Enoxaparin Sodium (Lovenox) 40 mg SC DAILY LO Stop: 04/15/19 08:59 Last Admin: 10/19/18 08:36 Dose: 40 mg Furosemide (Lasix) 40 mg PO DAILY LO Stop: 04/16/19 08:59 Last Admin: 10/19/18 08:37 Dose: 40 mg Insulin Glargine (Lantus Syringe) 6 units SC DAILY LO Stop: 04/16/19 08:59 Last Admin: 10/19/18 08:37 Dose: 6 units Lisinopril (Zestril) 2.5 mg PO DAILY LO Stop: 04/16/19 08:59 Last Admin: 10/19/18 08:37 Dose: 2.5 mg Morphine Sulfate (Ms Contin/Oramorph) 15 mg PO HS [facility] Stop: 10/27/18 20:59 Last Admin: 10/19/18 20:13 Dose: 15 mg Morphine Sulfate (Roxanol Oral Solution) 0.25 mg PO Q4HRS PRN PRN Reason: Pain, Breakthrough Last Admin: 10/20/18 00:16 Dose: 0.25 mg Morphine Sulfate (Roxanol Oral Solution) 0.25 mg PO BID LO Stop: 04/15/19 20:59 Last Admin: 10/19/18 20:13 Dose: 0.25 mg Olanzapine (Olanzapine) 5 mg PO HS [facility] Stop: 04/15/19 20:59 Last Admin: 10/19/18 20:13 Dose: 5 mg Ondansetron HCl (Zofran Odt) 4 mg PO Q4HRS PRN PRN Reason: Nausea/Vomiting, Use 1st Stop: 04/15/19 08:16 Last Admin: 10/18/18 19:20 Dose: 4 mg Prednisone (Prednisone) 40 mg PO DAILY LO Stop: 04/17/19 12:29 Last Admin: 10/19/18 15:05 Dose: 40 mg Senna/Docusate Sodium (Senokot-S) 2 tab PO DAILY LO Stop: 04/16/19 08:59 Last Admin: 10/19/18 08:36 Dose: 2 tab Throat Lozenges (Cepacol Lozenge) 1 ea PO Q4HRS PRN PRN Reason: cough/sore throat Stop: 04/15/19 13:08 Last Admin: 10/20/18 00:16 Dose: 1 ea Venlafaxine HCl (Effexor Xr) 150 mg PO DAILY LO Stop: 04/16/19 08:59 Last Admin: 10/19/18 08:36 Dose: 150 mg Discontinued Medications Albuterol/Ipratropium (Duoneb) 3 ml IH EDNOW ONE Stop: 10/17/18 05:45 Last Admin: 10/17/18 05:55 Dose: 3 ml Cholecalciferol (D3-50) 50,000 unit PO Q30D LO Stop: 04/15/19 13:14 Last Admin: 10/17/18 14:07 Dose: Not Given Furosemide (Lasix Injection) 40 mg IVP EDNOW ONE Stop: 10/17/18 06:50 Last Admin: 10/17/18 07:47 Dose: 40 mg Furosemide (Lasix Injection) 20 mg IVP ONCE ONE Stop: 10/18/18 10:45 Last Admin: 10/18/18 12:32 Dose: 20 mg Hydralazine HCl (Apresoline) 10 mg IVP EDNOW ONE Stop: 10/17/18 05:49 Last Admin: 10/17/18 06:07 Dose: 10 mg Sodium Chloride (Ns) 1,000 mls @ 0 mls/hr IV EDNOW ONE; Wide Open PRN Reason: Protocol Stop: 10/17/18 05:44 Last Admin: 10/17/18 05:55 Dose: 1,000 mls Levofloxacin/Dextrose (Levaquin 750 Mg (Premix)) 150 mls @ 100 mls/hr IV EDNOW ONE PRN Reason: Protocol Stop: 10/17/18 08:53 Last Admin: 10/17/18 09:00 Dose: 150 mls Levofloxacin/Dextrose (Levaquin 750 Mg (Premix)) 150 mls @ 100 mls/hr IV DAILY LO PRN Reason: Protocol Stop: 11/16/18 08:59 Last Admin: 10/17/18 11:49 Dose: Not Given Levofloxacin/Dextrose (Levaquin 750 Mg (Premix)) 150 mls @ 100 mls/hr IV DAILY LO PRN Reason: Protocol Stop: 11/17/18 08:59 Last Admin: 10/19/18 08:34 Dose: 150 mls Magnesium Sulfate/Dextrose (Magnesium Sulf 1 Gm (Premix)) 100 mls @ 100 mls/hr IV ONCE ONE Stop: 10/18/18 11:05 Last Admin: 10/18/18 11:32 Dose: 100 mls Potassium Chloride (Klor-Con) 10 meq PO ONCE ONE PRN Reason: Protocol Stop: 10/18/18 10:07 Last Admin: 10/18/18 10:47 Dose: 10 meq Potassium Chloride (Klor-Con) 10 meq PO ONCE ONE PRN Reason: Protocol Stop: 10/18/18 20:03 Last Admin: 10/18/18 20:35 Dose: 10 meq Point of Care Test Results: Chemistry 10/17/18 05:51 POC Troponin I 0.02 ng/mL ng/mL (0.00-0.08) Departure - Departure Disposition: [facility] Acute Clinical Impression: Elevated d-dimer, Shortness of breath, Hypoxia CHF (congestive heart failure) Qualifiers: Heart failure type: other Qualified Code(s): I50.9 - Heart failure, unspecified Pneumonia Qualifiers: Pneumonia type: due to unspecified organism Laterality: right Lung location: lower lobe of lung Qualified Code(s): J18.1 - Lobar pneumonia, unspecified organism Condition: Fair
[2018-10-17] MEDS ORDERED: NS 1,000 ML IV ONE (05:43)
[2018-10-17] MEDS ORDERED: IPRATROPIUM/ALBUTEROL 3 ML DEYVIAL IH ONE (05:44)
[2018-10-17] MEDS ORDERED: hydrALAZINE 20 MG/ML VIAL IVP ONE (05:48)
[2018-10-17 05:55] LABS: PLATELET COUNT 196 10^3/uL (150-400)
[2018-10-17 06:00] LABS: INR 1.05 (0.83-1.16); PROTIME(PATIENT) 13.9 SEC (12.0-15.0)
[2018-10-17] MEDS ORDERED: IOPAMIDOL (ISOVUE 370) 100 ML BTL IV ONE (06:21)
[2018-10-17] MEDS ORDERED: FUROSEMIDE 40 MG/4 ML VIAL IVP ONE (06:49)
--- NOTE | 2018-10-17 07:51 | CPEKG ---
Test Reason : OPEN Blood Pressure : / mmHG Vent. Rate : 098 BPM Atrial Rate : 098 BPM P-R Int : 221 ms QRS Dur : 127 ms QT Int : 371 ms P-R-T Axes : 085 -67 069 degrees QTc Int : 474 ms Sinus rhythm Prolonged OH interval RBBB and LAFB LVH with secondary repolarization abnormality Confirmed by Mathieu Tran ([id number]) on 10/17/2018 7:50:59 AM Referred By: Confirmed By:Mathieu Tran
[2018-10-17] MEDS ORDERED: ONDANSETRON DISINTEGRATING 4 MG TAB PO PRN (08:17)
[2018-10-17] MEDS ORDERED: ONDANSETRON 4 MG/2 ML VIAL IVP PRN (08:17)
[2018-10-17] MEDS: ACETAMINOPHEN 325 MG TAB PO PRN (09:21)
--- NOTE | 2018-10-17 12:59 | PDGENHP ---
History and Physical - Chief Complaint SOB, Elevated BP - History of Present Illness Carmela Vanegas is a 83 yo F with a PMHx of advanced dementia, DM, COPD, diastolic HF who presents to [facility] for shortness of breath. Patient is a poor historian due to dementia and history was obtained from chart review. Per report patient was transferred from [facility] for SOB and HTN. BP on arrival 214/100, HR 101, PUlse ox 95% on 2L. History Information - Allergies/Home Medication List Allergies/Adverse Reactions: oxycodone HCl [From OxyContin] Allergy (Unknown, Verified 10/17/18 05:47) aspirin [Aspirin] Allergy (Verified 10/17/18 05:47) codeine [Codeine] Allergy (Verified 10/17/18 05:47) NSAIDS (Non-Steroidal Anti-Inflamma [Nsaids] Allergy (Verified 10/17/18 05:47) oxybutynin [Oxybutynin] Allergy (Verified 10/17/18 05:47) Home Medications: Acetaminophen [Tylenol 325mg (*)] 650 mg PO Q4 PRN 02/14/18 [Last Taken Unknown] Albuterol [Proventil Inhaler HFA (*)] 2 puffs IH Q6 PRN 02/14/18 [Last Taken Unknown] Bisacodyl [Dulcolax] 10 mg RC DAILY PRN 02/14/18 [Last Taken Unknown] Carboxymethylcellulose 1% [Refresh Celluvisc (*)] 1 drop OP DAILY PRN 02/14/18 [ Last Taken Unknown] Carvedilol 6.25 mg PO BIDMEAL 02/14/18 [Last Taken Unknown] Cholecalciferol Vit D3 [Vitamin D3 (*)] 50,000 unit PO Q30D 02/14/18 [Last Taken 02/12/18] Clopidogrel Bisulfate [Clopidogrel] 75 mg PO DAILY 02/14/18 [Last Taken Unknown] Dextrose Oral Gel [Glucose Gel (*)] 15 gm PO Q1 PRN 02/14/18 [Last Taken Unknown ] Glucagon,Human Recombinant [Glucagon Emergency Kit] 1 mg IJ ONCE PRN 02/14/18 [ Last Taken Unknown] Insulin Detemir [Levemir] 6 unit SQ DAILY 02/14/18 [Last Taken Unknown] Magnesium Hydroxide [Milk of Magnesia] 30 ml PO DAILY PRN 02/14/18 [Last Taken Unknown] Nystatin [Nystop] 1 johanna TP BID PRN 02/14/18 [Last Taken Unknown] Polyethylene Glycol 3350 [Miralax 17 gm (*)] 17 gm PO DAILY PRN 02/14/18 [Last Taken Unknown] Sennosides/Docusate Sodium [Senna-S Tablet] 2 each PO DAILY 02/14/18 [Last Taken Unknown] Venlafaxine Xr [Effexor Xr] 150 mg PO DAILY 02/14/18 [Last Taken Unknown] Ativan Solution 2mg/Ml 0.25 ml PO BID PRN 10/17/18 [Last Taken Unknown] Atorvastatin Calcium [Lipitor 10 mg (*)] 10 mg PO DAILY 10/17/18 [Last Taken Unknown] Benzocaine/Menthol 15/4 [Cepacol Lozenge (OTC)] 1 mg PO Q4HRS PRN 10/17/18 [ Last Taken Unknown] Carboxymethylcellulose 1% [Refresh Celluvisc (*)] 2 drop EACHEYE QID 10/17/18 [ Last Taken Unknown] Diltiazem [Cardizem Immediate Release] 30 mg PO BID 10/17/18 [Last Taken Unknown ] Furosemide [Lasix 20 MG (*)] 20 mg PO DAILY PRN 10/17/18 [Last Taken Unknown] Herbals/Supplements -Info Only 1 ea PO DAILY 10/17/18 [Last Taken Unknown] Lisinopril [Zestril 2.5 mg (*)] 2.5 mg PO DAILY 10/17/18 [Last Taken Unknown] Morphine Sulfate 20mg/Ml Galilea 0.25 ml PO BID 10/17/18 [Last Taken Unknown] Morphine Sulfate 20mg/Ml Galilea 0.25 ml PO Q4HRS PRN 10/17/18 [Last Taken Unknown] OLANZapine [Zyprexa] 5 mg PO HS 10/17/18 [Last Taken Unknown] morphINE SR [Ms Contin/Oramorph 15 mg (*)] 15 mg PO HS 10/17/18 [Last Taken Unknown] I have personally reviewed and updated: family history, medical history, social history, surgical history - Past Medical History CHF, COPD, dementia, diabetes type 2 - Surgical History Reports: no pertinent surgical hx - Family History Positive for: non-pertinent - Social History Smoking Status: Unknown if ever smoked Review of Systems Review of Systems: Unable to perform ROS due to AMS Physical Exam Physical Exam: Temp Pulse Resp BP Pulse Ox 36.7 C 94 18 122/80 H 98 10/17/18 09:42 10/17/18 09:42 10/17/18 09:42 10/17/18 09:42 10/17/18 09:42 O2 (L/minute) 2 Constitutional: chronically ill appearing, unkempt Eyes: PERRL Ears, Nose, Mouth, Throat: moist mucous membranes Cardiovascular: regular rate and rhythym Respiratory: no respiratory distress, reduced air movement Gastrointestinal: soft, non-tender abdomen Neurologic: No AAOx3 Psychiatric: No interacting appropriately, No thought process linear Lab Data & Imaging Review 10/17/18 05:45 10/17/18 05:45 WBC 14.58 10^3/uL (3.80-9.50) H 10/17/18 05:45 RBC 3.70 10^6/uL (4.18-5.33) L 10/17/18 05:45 Hgb 11.0 g/dL (12.6-16.3) L 10/17/18 05:45 Hct 35.2 % (38.0-47.0) L 10/17/18 05:45 MCV 95.1 fL (81.5-99.8) 10/17/18 05:45 MCH 29.7 pg (27.9-34.1) 10/17/18 05:45 MCHC 31.3 g/dL (32.4-36.7) L 10/17/18 05:45 RDW 12.9 % (11.5-15.2) 10/17/18 05:45 Plt Count 196 10^3/uL (150-400) 10/17/18 05:45 MPV 10.1 fL (8.7-11.7) 10/17/18 05:45 Neut % (Auto) 80.2 % (39.3-74.2) H 10/17/18 05:45 Lymph % (Auto) 11.3 % (15.0-45.0) L 10/17/18 05:45 Irwin % (Auto) 6.9 % (4.5-13.0) 10/17/18 05:45 Eos % (Auto) 1.0 % (0.6-7.6) 10/17/18 05:45 Baso % (Auto) 0.2 % (0.3-1.7) L 10/17/18 05:45 Nucleat RBC Rel Count 0.0 % (0.0-0.2) 10/17/18 05:45 Absolute Neuts (auto) 11.70 10^3/uL (1.70-6.50) H 10/17/18 05:45 Absolute Lymphs (auto) 1.65 10^3/uL (1.00-3.00) 10/17/18 05:45 Absolute Monos (auto) 1.00 10^3/uL (0.30-0.80) H 10/17/18 05:45 Absolute Eos (auto) 0.14 10^3/uL (0.03-0.40) 10/17/18 05:45 Absolute Basos (auto) 0.03 10^3/uL (0.02-0.10) 10/17/18 05:45 Absolute Nucleated RBC 0.00 10^3/uL (0-0.01) 10/17/18 05:45 Immature Gran % 0.4 % (0.0-1.1) 10/17/18 05:45 Immature Gran # 0.06 10^3/uL (0.00-0.10) 10/17/18 05:45 PT 13.9 SEC (12.0-15.0) 10/17/18 05:45 INR 1.05 (0.83-1.16) 10/17/18 05:45 APTT 30.3 SEC (23.0-38.0) 10/17/18 05:45 D-Dimer 7.69 ug/mLFEU (0.00-0.50) H 10/17/18 05:45 Sodium 135 mEq/L (135-145) 10/17/18 05:45 Potassium 4.2 mEq/L (3.5-5.2) 10/17/18 05:45 Chloride 93 mEq/L (97-110) L 10/17/18 05:45 Carbon Dioxide 35 mEq/l (22-31) H 10/17/18 05:45 Anion Gap 7 mEq/L (6-14) 10/17/18 05:45 BUN 26 mg/dL (7-23) H 10/17/18 05:45 Creatinine 0.6 mg/dL (0.6-1.0) 10/17/18 05:45 Estimated GFR > 60 10/17/18 05:45 Glucose 205 mg/dL (70-100) H 10/17/18 05:45 Calcium 8.5 mg/dL (8.5-10.4) 10/17/18 05:45 Magnesium 1.5 mg/dL (1.6-2.3) L 10/17/18 05:45 Total Bilirubin 0.5 mg/dL (0.1-1.4) 10/17/18 05:45 Conjugated Bilirubin 0.4 mg/dL (0.0-0.5) 10/17/18 05:45 Unconjugated Bilirubin 0.1 mg/dL (0.0-1.1) 10/17/18 05:45 AST 17 IU/L (14-46) 10/17/18 05:45 ALT 17 IU/L (9-52) 10/17/18 05:45 Alkaline Phosphatase 135 IU/L (38-126) H 10/17/18 05:45 POC Troponin I 0.02 ng/mL (0.00-0.08) 10/17/18 05:51 NT-Pro-B Natriuret Pep 1370 pg/mL (0-450) H 10/17/18 05:45 Total Protein 7.9 g/dL (6.3-8.2) 10/17/18 05:45 Albumin 3.6 g/dL (3.5-5.0) 10/17/18 05:45 Lipase 21 IU/L (23-300) L 10/17/18 05:45 Assessment & Plan Assessment: Sepsis - Patient presenting with SOB - CTA on admission shows dense airspace consolidations in RLL - Leukocytosis (14.5), Fever, and mild tachycardia on admission - S/p Levaquin in ED, will continue for now - Blood cultures collected, f/u results - S/p 1L IVF, then given Lasix due to concern for fluid overload, will hold off on further IVF due to BP and HR near normal, additional IVF PRN - Tylenol PRN for fever CHF (congestive heart failure) (Acute) - CXR shows cardiology on admisison, hx of diastolic HF - Given 1L NS in ED, then 40 mg IV Lasix - Does not appear grossly fluid overloaded - Will continue home Lasix 40 mg PO qd, titrate dose or give IV as needed - Continue home Coreg Hypoxia (Acute) - Requiring 2L 02 to maintain sats >90% - In setting of PNA as above - Wean 02 as tolerated Hypertensive Urgency - BP elevated 214/110 on admission - S/p 10 mg IV Hydralazine in ED with improvement in BP - Currently SBP 120's - Continue home anti-hypertensives including Lisinopril, Coreg Pneumonia (Acute) - Management as above Pericardial Effusion - Noted on CTA, also noted on admission from 02/2018 - Holding off on repeat TTE for now CAD - Continue home Atorvastatin and Plavix COPD - Continue prn Albuterol T2DM - On Levemir, will continue - Add SSI as IP Advanced Dementia - Continue home Effexor, Risperidone FEN: Cardiac Code: FULL, will call to confirm Dispo: Admit to Medicine
[2018-10-17] MEDS ORDERED: NYSTATIN POWDER 15 GM BTL TP PRN (13:09)
[2018-10-17] MEDS ORDERED: ALBUTEROL 60 PUFFS/8 GM MDI IH PRN (13:09)
[2018-10-17] MEDS ORDERED: CEPACOL LOZENGE PO PRN (13:09)
[2018-10-17] MEDS ORDERED: LORazepam 0.5 MG TAB PO PRN (13:09)
[2018-10-17] MEDS ORDERED: CARBOXYMETHYLCELLULOSE 1% 0.4 ML DROPERETTE OP PRN (13:09)
[2018-10-17] MEDS ORDERED: POLYETHYLENE GLYCOL 3350 17 GM PKT PO PRN (13:09)
[2018-10-17] MEDS ORDERED: CHOLECALCIFEROL VIT D3 50,000 UNIT CAP PO SCH (13:15)
[2018-10-17] MEDS: ENOXAPARIN 40 MG/0.4 ML SYR SC SCH (14:04)
[2018-10-17] MEDS: CARBOXYMETHYLCELLULOSE 1% 0.4 ML DROPERETTE EACHEYE SCH ×2 (14:06→20:40)
--- NOTE | 2018-10-17 14:34 | ASMTCMCOM ---
CM Note CM Note Notes: Pt is a 83 y/o female admitted for hypertension and shortness of breath. Pt has advance dementia. Pt resides at [facility]. Updates sent to [facility]. CM to follow. Plan: [facility] Date Signed: 10/17/2018 02:33 PM Electronically Signed By:RIN Adan
--- NOTE | 2018-10-17 14:35 | PDMN ---
Medical Necessity Medical necessity: [facility] [place] M160 sepsis and other febrile illness pt presents with leukocytosis, fever, tachycardia, SOB, HTN,AMS, PMHx advanced dementia, COPD, CHF, DM, CT shows RLL dense airspace consolidations, BC pend., CXR shows cardiomegaly , hypoxia req 2L to keep sats > 90%, HTN urgency 214/110 on admit, anticipate > 2 MN ongoing med nec care, further eval and monitoring needed
--- NOTE | 2018-10-17 14:41 | ASMTLACE ---
WICHO Acuity / Level of Answers: Yes Care: Did the patient have an inpatient admission? Comorbidities - select Answers: Chronic pulmonary disease all that apply Congestive heart failure Dementia Diabetes (uncontrolled or controlled) Opioid dependence / Chronic pain Other Notes: HTN # of Emergency department Answers: 1-2 visits in the last 6 months Score: 17 Date Signed: 10/17/2018 02:40 PM Electronically Signed By:Patricia Fletcher
[2018-10-17] MEDS: CARVEDILOL 6.25 MG TAB PO SCH (18:21)
[2018-10-17] MEDS: OLANZapine 5 MG TAB PO SCH (20:32)
[2018-10-17] MEDS: morphINE SR 15 MG TAB PO SCH (20:32)
[2018-10-17] MEDS: morphINE 10 MG/0.5 ML UDSYR PO SCH (20:33)
[2018-10-17] MEDS: DILTIAZEM 30 MG TAB PO SCH (20:33)
[2018-10-18 07:33] LABS: PLATELET COUNT 187 10^3/uL (150-400)
[2018-10-18] MEDS ORDERED: PROTOCOL MAGNESIUM 1 DOSE IV PRN (08:55)
[2018-10-18] MEDS ORDERED: PROTOCOL POTASSIUM 1 DOSE MISC PRN (08:55)
[2018-10-18] MEDS: CARBOXYMETHYLCELLULOSE 1% 0.4 ML DROPERETTE EACHEYE SCH ×4 (09:19→20:36)
[2018-10-18] MEDS: ATORVASTATIN CALCIUM 10 MG TAB PO SCH (09:21)
[2018-10-18] MEDS: CLOPIDOGREL BISULFATE 75 MG TAB PO SCH (09:21)
[2018-10-18] MEDS: VENLAFAXINE XR 150 MG CAP PO SCH (09:21)
[2018-10-18] MEDS: FUROSEMIDE 40 MG TAB PO SCH (09:22)
[2018-10-18] MEDS: ENOXAPARIN 40 MG/0.4 ML SYR SC SCH (09:30)
[2018-10-18] MEDS: DILTIAZEM 30 MG TAB PO SCH ×2 (09:30→20:35)
[2018-10-18] MEDS: INSULIN GLARGINE 100 UNITS/ML UNIT SC SCH (09:30)
[2018-10-18] MEDS: LISINOPRIL 2.5 MG TAB PO SCH (09:34)
[2018-10-18] MEDS: CARVEDILOL 6.25 MG TAB PO SCH ×2 (09:34→17:34)
[2018-10-18] MEDS: SENNOSIDES/DOCUSATE SODIUM TAB PO SCH (09:34)
[2018-10-18] MEDS: morphINE 10 MG/0.5 ML UDSYR PO SCH ×2 (10:01→20:36)
[2018-10-18] MEDS ORDERED: MAGNESIUM SULF 1 GM/DEXTROSE 100 ML IV ONE (10:06)
[2018-10-18] MEDS ORDERED: POTASSIUM CL 10 MEQ TAB PO ONE ×2 (10:06→20:02)
[2018-10-18] MEDS ORDERED: FUROSEMIDE 20 MG/2 ML VIAL IVP ONE (10:44)
[2018-10-18] MEDS ORDERED: IOPAMIDOL (ISOVUE-300) 100 ML BTL ONE (11:28)
--- NOTE | 2018-10-18 13:48 | HOSPPROG ---
Hospitalist Progress Note Assessment/Plan: Sepsis due to RLL pneumonia - CTA on admission shows dense airspace consolidations in RLL - Leukocytosis (14.5), Fever, and mild tachycardia on admission - Cont Levaquin - Blood cultures collected, f/u results CHF (congestive heart failure) (Acute) - Will continue home Lasix 40 mg PO qd - Continue home Coreg - additional IV Lasix today Hypoxia (Acute) - Requiring 2L 02 to maintain sats >90% - In setting of PNA as above - Wean 02 as tolerated Hypertensive Urgency - BP elevated 214/110 on admission - S/p 10 mg IV Hydralazine in ED with improvement in BP - Continue home anti-hypertensives including Lisinopril, Coreg Pneumonia (Acute), RLL - Management as above Pericardial Effusion - Noted on CTA, also noted on admission from 02/2018 - Holding off on repeat TTE for now CAD - Continue home Atorvastatin and Plavix COPD - Continue prn Albuterol T2DM - On Levemir, will continue - Add SSI as IP Advanced Dementia - Continue home Effexor, Risperidone Cecal Basecule identified on Abd XR -obtained a CT A/P today with no further identification FEN: Cardiac Code: FULL, will call to confirm Plan: The pt was made NPO while awaiting CT A/P. Given findings, will restart a diet now cont abx PT/OT start ISS cont inpatient Subjective: still with some sob. no n/v Objective: Vital Signs Temp Pulse Resp BP Pulse Ox 36.7 C 75 10 L 164/64 H 99 10/18/18 07:20 10/18/18 09:30 10/18/18 07:20 10/18/18 09:30 10/18/18 07:20 Laboratory Results 10/18/18 07:25 10/18/18 07:25 10/17/18 10/18/18 10/19/18 05:59 05:59 05:59 Intake Total 1130 Balance 1130 PT 13.9 SEC (12.0-15.0) 10/17/18 05:45 INR 1.05 (0.83-1.16) 10/17/18 05:45 - Physical Exam Constitutional: chronically ill appearing Eyes: PERRL, EOMI Ears, Nose, Mouth, Throat: moist mucous membranes, hearing normal Cardiovascular: regular rate and rhythym, No edema Respiratory: reduced air movement, No no respiratory distress Gastrointestinal: normoactive bowel sounds, soft, non-tender abdomen Skin: warm Neurologic: No AAOx3 Psychiatric: interacting appropriately, not anxious, encephalopathic Lymph, Heme, Immunologic: No petechiae ICD10 Worksheet Patient Problems: Problems Problem Status Onset CHF (congestive heart failure) Acute Elevated d-dimer Acute Hypoxia Acute Pneumonia Acute Shortness of breath Acute Elevated troponin Acute
[2018-10-18] MEDS ORDERED: LACTULOSE 20 GM/30 ML UDCUP PO PRN (18:28)
[2018-10-18] MEDS ORDERED: MAGNESIUM HYDROXIDE 30 ML UDCUP PO PRN (18:28)
[2018-10-18] MEDS ORDERED: POLYETHYLENE GLYCOL 3350 17 GM PKT PO PRN (18:28)
[2018-10-18] MEDS ORDERED: BISACODYL 10 MG SUPP PR PRN (18:28)
[2018-10-18] MEDS: morphINE SR 15 MG TAB PO SCH (20:34)
[2018-10-18] MEDS: OLANZapine 5 MG TAB PO SCH (20:35)
[2018-10-19] MEDS: CARBOXYMETHYLCELLULOSE 1% 0.4 ML DROPERETTE EACHEYE SCH ×4 (05:46→20:12)
[2018-10-19] MEDS: ATORVASTATIN CALCIUM 10 MG TAB PO SCH (08:35)
[2018-10-19] MEDS: morphINE 10 MG/0.5 ML UDSYR PO SCH ×2 (08:35→20:13)
[2018-10-19] MEDS: CLOPIDOGREL BISULFATE 75 MG TAB PO SCH (08:35)
[2018-10-19] MEDS: VENLAFAXINE XR 150 MG CAP PO SCH (08:36)
[2018-10-19] MEDS: CARVEDILOL 6.25 MG TAB PO SCH ×2 (08:36→17:21)
[2018-10-19] MEDS: SENNOSIDES/DOCUSATE SODIUM TAB PO SCH (08:36)
[2018-10-19] MEDS: ENOXAPARIN 40 MG/0.4 ML SYR SC SCH (08:36)
[2018-10-19] MEDS: DILTIAZEM 30 MG TAB PO SCH ×2 (08:36→20:12)
[2018-10-19] MEDS: INSULIN GLARGINE 100 UNITS/ML UNIT SC SCH (08:37)
[2018-10-19] MEDS: FUROSEMIDE 40 MG TAB PO SCH (08:37)
[2018-10-19] MEDS: LISINOPRIL 2.5 MG TAB PO SCH (08:37)
[2018-10-19 09:18] LABS: PLATELET COUNT 196 10^3/uL (150-400)
--- NOTE | 2018-10-19 13:21 | HOSPPROG ---
Hospitalist Progress Note Assessment/Plan: Sepsis due to RLL pneumonia - CTA on admission shows dense airspace consolidations in RLL - Leukocytosis (14.5), Fever, and mild tachycardia on admission - Cont Levaquin - Blood cultures: NGTD CHF (congestive heart failure) (Acute) - Will continue home Lasix 40 mg PO qd - Continue home Coreg Hypoxia (Acute), Multifactoria - Requiring 2L 02 to maintain sats >90% - In setting of PNA as above - Wean 02 as tolerated Acute Bronchitis -Coronavirus -nebs -will schedule Prednisone Hypertensive Urgency - BP elevated 214/110 on admission - S/p 10 mg IV Hydralazine in ED with improvement in BP - Continue home anti-hypertensives including Lisinopril, Coreg Pneumonia (Acute), RLL - Management as above Pericardial Effusion - Noted on CTA, also noted on admission from 02/2018 - Holding off on repeat TTE for now CAD - Continue home Atorvastatin and Plavix COPD - Continue prn Albuterol T2DM - On Levemir, will continue - Add SSI as IP Advanced Dementia - Continue home Effexor, Risperidone Cecal Basecule identified on Abd XR -obtained a CT A/P today with no further identification FEN: Cardiac Code: FULL Dispo: will need SNF. Likely ready soon. Subjective: no cp or sob. no n/v. still on 2 Liters. Objective: Vital Signs Temp Pulse Resp BP Pulse Ox 36.7 C 69 18 124/53 H 99 10/19/18 11:13 10/19/18 11:13 10/19/18 11:13 10/19/18 11:13 10/19/18 11:13 Microbiology 10/18/18 13:56 Respiratory Panel (PCR) - Final Nasal, Sinus - Swab Coronovirus Oc43 Detected Laboratory Results 10/19/18 09:07 10/19/18 09:07 10/18/18 10/19/18 10/20/18 05:59 05:59 05:59 Intake Total 1130 760 Balance 1130 760 PT 13.9 SEC (12.0-15.0) 10/17/18 05:45 INR 1.05 (0.83-1.16) 10/17/18 05:45 - Physical Exam Constitutional: no apparent distress Eyes: PERRL Ears, Nose, Mouth, Throat: moist mucous membranes, hearing normal Cardiovascular: regular rate and rhythym, No edema Respiratory: no respiratory distress, reduced air movement, expiratory wheeze Gastrointestinal: soft, non-tender abdomen Skin: warm Neurologic: No AAOx3 Psychiatric: encephalopathic Lymph, Heme, Immunologic: No petechiae ICD10 Worksheet Patient Problems: Problems Problem Status Onset CHF (congestive heart failure) Acute Elevated d-dimer Acute Hypoxia Acute Pneumonia Acute Shortness of breath Acute Elevated troponin Acute
[2018-10-19] MEDS: predniSONE 20 MG TAB PO SCH (15:05)
[2018-10-19] MEDS: morphINE SR 15 MG TAB PO SCH (20:13)
[2018-10-19] MEDS: OLANZapine 5 MG TAB PO SCH (20:13)
[2018-10-20] MEDS: morphINE 10 MG/0.5 ML UDSYR PO PRN ×2 (00:16→04:22)
[2018-10-20] MEDS: CARBOXYMETHYLCELLULOSE 1% 0.4 ML DROPERETTE EACHEYE SCH ×4 (04:23→21:00)
--- NOTE | 2018-10-20 08:42 | CPEKG ---
Test Reason : OPEN Blood Pressure : / mmHG Vent. Rate : 098 BPM Atrial Rate : 098 BPM P-R Int : 220 ms QRS Dur : 127 ms QT Int : 368 ms P-R-T Axes : 096 -65 077 degrees QTc Int : 470 ms Sinus rhythm Atrial premature complex Prolonged ID interval Right bundle branch block LVH with IVCD and secondary repol abnrm RBBB pattern is new in comparison to prior ECG Confirmed by Leoncio Quijano ([id number]) on 10/20/2018 8:41:46 AM Referred By: Confirmed By:Leoncio Quijano
[2018-10-20] MEDS: DILTIAZEM 30 MG TAB PO SCH ×2 (10:23→20:54)
[2018-10-20] MEDS: SENNOSIDES/DOCUSATE SODIUM TAB PO SCH (10:23)
[2018-10-20] MEDS: predniSONE 20 MG TAB PO SCH (10:23)
[2018-10-20] MEDS: LISINOPRIL 2.5 MG TAB PO SCH (10:24)
[2018-10-20] MEDS: CLOPIDOGREL BISULFATE 75 MG TAB PO SCH (10:24)
[2018-10-20] MEDS: ACETAMINOPHEN 325 MG TAB PO PRN ×2 (10:25→16:22)
[2018-10-20] MEDS: ENOXAPARIN 40 MG/0.4 ML SYR SC SCH (10:25)
[2018-10-20] MEDS: VENLAFAXINE XR 150 MG CAP PO SCH (10:25)
[2018-10-20] MEDS: ATORVASTATIN CALCIUM 10 MG TAB PO SCH (10:25)
[2018-10-20] MEDS: morphINE 10 MG/0.5 ML UDSYR PO SCH ×2 (10:26→20:57)
[2018-10-20] MEDS: CARVEDILOL 6.25 MG TAB PO SCH ×2 (10:50→19:24)
[2018-10-20] MEDS: INSULIN GLARGINE 100 UNITS/ML UNIT SC SCH (10:50)
[2018-10-20] MEDS: FUROSEMIDE 40 MG TAB PO SCH (10:50)
[2018-10-20] MEDS ORDERED: FUROSEMIDE 20 MG TAB PO ONE (13:43)
--- NOTE | 2018-10-20 13:49 | HOSPPROG ---
Hospitalist Progress Note Assessment/Plan: Sepsis due to RLL pneumonia - CTA on admission shows dense airspace consolidations in RLL - Leukocytosis (14.5), Fever, and mild tachycardia on admission - Cont Levaquin - Blood cultures: NGTD CHF (congestive heart failure) (Acute) - Will continue home Lasix 40 mg PO qd - Continue home Coreg Hypoxia (Acute), Multifactoria - Requiring 2L 02 to maintain sats >90% - In setting of PNA as above - Wean 02 as tolerated Acute Bronchitis -Coronavirus -nebs -Prednisone Hypertensive Urgency - BP elevated 214/110 on admission - S/p 10 mg IV Hydralazine in ED with improvement in BP - Continue home anti-hypertensives including Lisinopril, Coreg Pneumonia (Acute), RLL - Management as above Pericardial Effusion - Noted on CTA, also noted on admission from 02/2018 - Holding off on repeat TTE for now CAD - Continue home Atorvastatin and Plavix COPD - Continue prn Albuterol T2DM - On Levemir, will continue - Add SSI as IP Advanced Dementia - Continue home Effexor, Risperidone Cecal Basecule identified on Abd XR -obtained a CT A/P wich did not show it Hyponatremia, etiology unclear, -Had volume overload on admission -back on scheduled Lasix Hyperkalemia, mild SUNNY, mild FEN: Cardiac Code: FULL Plan: -From a resp perspective, she is much better and can likely be weaned to room air. Cont with nebs and prednisone. Cont Levaquin -Etiology of Hyponatremia is unclear. She may have slight volume overload. Will provide additional dose of Lasix today. Will order urine studies. Na has been trending down since admission -Lasix should also help mild hypernatremia. Cr is mildly elevated and this will be monitored Dispo: not ready for d/c. Hopefully will be ready soon. Can return to her SNF when ready Subjective: no cp or sob. feels better. Objective: Vital Signs Temp Pulse Resp BP Pulse Ox 36.8 C 69 18 136/74 H 93 10/20/18 08:00 10/20/18 10:50 10/20/18 08:00 10/20/18 10:50 10/20/18 08:00 Laboratory Results 10/19/18 09:07 10/20/18 10:00 10/19/18 10/20/18 10/21/18 05:59 05:59 05:59 Intake Total 760 1350 Output Total 2 Balance 760 1348 PT 13.9 SEC (12.0-15.0) 10/17/18 05:45 INR 1.05 (0.83-1.16) 10/17/18 05:45 - Physical Exam Constitutional: no apparent distress Eyes: PERRL, EOMI Ears, Nose, Mouth, Throat: moist mucous membranes, hearing normal Cardiovascular: regular rate and rhythym, No edema Respiratory: no respiratory distress, reduced air movement Gastrointestinal: normoactive bowel sounds, soft, non-tender abdomen Skin: warm Psychiatric: interacting appropriately, not anxious, encephalopathic Lymph, Heme, Immunologic: No petechiae ICD10 Worksheet Patient Problems: Problems Problem Status Onset CHF (congestive heart failure) Acute Elevated d-dimer Acute Hypoxia Acute Pneumonia Acute Shortness of breath Acute Elevated troponin Acute
[2018-10-20] MEDS: OLANZapine 5 MG TAB PO SCH (20:55)
[2018-10-20] MEDS: morphINE SR 15 MG TAB PO SCH (20:56)
[2018-10-21] MEDS: CARBOXYMETHYLCELLULOSE 1% 0.4 ML DROPERETTE EACHEYE SCH ×4 (06:17→22:45)
[2018-10-21] MEDS: INSULIN GLARGINE 100 UNITS/ML UNIT SC SCH (09:42)
[2018-10-21] MEDS: ENOXAPARIN 40 MG/0.4 ML SYR SC SCH (09:47)
[2018-10-21] MEDS: morphINE 10 MG/0.5 ML UDSYR PO SCH ×2 (09:47→21:00)
[2018-10-21] MEDS: LISINOPRIL 2.5 MG TAB PO SCH (09:49)
[2018-10-21] MEDS: predniSONE 20 MG TAB PO SCH (09:49)
[2018-10-21] MEDS: DILTIAZEM 30 MG TAB PO SCH ×2 (09:49→20:58)
[2018-10-21] MEDS: ATORVASTATIN CALCIUM 10 MG TAB PO SCH (09:49)
[2018-10-21] MEDS: VENLAFAXINE XR 150 MG CAP PO SCH (09:49)
[2018-10-21] MEDS: CLOPIDOGREL BISULFATE 75 MG TAB PO SCH (09:49)
[2018-10-21] MEDS: CARVEDILOL 6.25 MG TAB PO SCH ×2 (09:50→18:16)
[2018-10-21] MEDS: SENNOSIDES/DOCUSATE SODIUM TAB PO SCH (09:50)
[2018-10-21] MEDS: FUROSEMIDE 40 MG TAB PO SCH (09:50)
[2018-10-21] MEDS ORDERED: NS 1,000 ML IV SCH (12:30)
--- NOTE | 2018-10-21 12:44 | HOSPPROG ---
Hospitalist Progress Note Assessment/Plan: 83 yo F rll pneumonia Sepsis due to RLL pneumonia CTA on admission shows dense airspace consolidations in RLL Leukocytosis (14.5), Fever, and mild tachycardia on admission Cont Levaquin Blood cultures: NGTD CHF (congestive heart failure) (Acute) bnp at about baseline suspect a bit dry hold lasix Continue home Coreg Hyponatremia, etiology unclear, Had volume overload on admission 10/21- i suspect she is clinically dry gentle IVF and follow continue ensure Hypoxia (Acute), Multifactoria Requiring 2L 02 to maintain sats >90% In setting of PNA as above Wean 02 as tolerated Acute Bronchitis Coronavirus nebs Hypertensive Urgency resolved Pneumonia (Acute), RLL Management as above Pericardial Effusion Noted on CTA, also noted on admission from 02/2018 Holding off on repeat TTE for now CAD Continue home Atorvastatin and Plavix COPD Continue prn Albuterol T2DM On Levemir, will continue Add SSI as IP Advanced Dementia Continue home Effexor, Risperidone Cecal Basecule identified on Abd XR obtained a CT A/P wich did not show it dispo: [facility] Subjective: sodium trending down. chest imaging reviewed/interp by me Objective: Vital Signs Temp Pulse Resp BP Pulse Ox 37.0 C 83 18 132/71 H 95 10/20/18 23:03 10/21/18 09:49 10/21/18 09:25 10/21/18 09:49 10/21/18 09:25 Laboratory Results 10/19/18 09:07 10/21/18 03:36 10/20/18 10/21/18 10/22/18 05:59 05:59 05:59 Intake Total 1350 886 Output Total 2 250 Balance 1348 886 -250 PT 13.9 SEC (12.0-15.0) 10/17/18 05:45 INR 1.05 (0.83-1.16) 10/17/18 05:45 - Physical Exam Constitutional: no apparent distress, appears nourished Eyes: PERRL, anicteric sclera Ears, Nose, Mouth, Throat: moist mucous membranes, hearing normal Cardiovascular: regular rate and rhythym, no murmur, rub, or gallop Respiratory: no respiratory distress Gastrointestinal: normoactive bowel sounds, soft, non-tender abdomen Genitourinary: No marin in urethra Skin: warm, normal color Musculoskeletal: No full muscle strength Neurologic: No AAOx3 Psychiatric: interacting appropriately ICD10 Worksheet Patient Problems: Problems Problem Status Onset CHF (congestive heart failure) Acute Elevated d-dimer Acute Hypoxia Acute Pneumonia Acute Shortness of breath Acute Elevated troponin Acute
--- NOTE | 2018-10-21 13:31 | ASMTCMCOM ---
CM Note CM Note Notes: Pt continues to progress medically. Able to return to [facility] once medically stable. CM to follow. Plan: [facility]. Date Signed: 10/21/2018 01:31 PM Electronically Signed By:RIN Tolentino
[2018-10-21] MEDS: OLANZapine 5 MG TAB PO SCH (20:58)
[2018-10-21] MEDS: morphINE SR 15 MG TAB PO SCH (20:59)
[2018-10-22] MEDS: CARBOXYMETHYLCELLULOSE 1% 0.4 ML DROPERETTE EACHEYE SCH ×2 (05:34→12:05)
[2018-10-22] MEDS: ENOXAPARIN 40 MG/0.4 ML SYR SC SCH (09:35)
[2018-10-22] MEDS: DILTIAZEM 30 MG TAB PO SCH (09:39)
[2018-10-22] MEDS: VENLAFAXINE XR 150 MG CAP PO SCH (09:39)
[2018-10-22] MEDS: CLOPIDOGREL BISULFATE 75 MG TAB PO SCH (09:39)
[2018-10-22] MEDS: morphINE 10 MG/0.5 ML UDSYR PO SCH (09:40)
[2018-10-22] MEDS: LISINOPRIL 2.5 MG TAB PO SCH (09:40)
[2018-10-22] MEDS: ATORVASTATIN CALCIUM 10 MG TAB PO SCH (09:40)
[2018-10-22] MEDS: SENNOSIDES/DOCUSATE SODIUM TAB PO SCH (09:41)
[2018-10-22] MEDS: CARVEDILOL 6.25 MG TAB PO SCH (10:16)
[2018-10-22] MEDS: INSULIN GLARGINE 100 UNITS/ML UNIT SC SCH (11:19)
[2018-10-22 12:05] VITALS: BP 106/51
--- NOTE | 2018-10-22 13:15 | HOSPPROG ---
Hospitalist Progress Note Assessment/Plan: 83 yo F rll pneumonia Sepsis due to RLL pneumonia CTA on admission shows dense airspace consolidations in RLL Leukocytosis (14.5), Fever, and mild tachycardia on admission Cont Levaquin Blood cultures: NGTD septic physiology has resolved CHF (congestive heart failure) (Acute) bnp at about baseline suspect a bit dry hold lasix Continue home Coreg Hyponatremia, etiology unclear, Had volume overload on admission 10/21- i suspect she is clinically dry gentle IVF and follow continue ensure 10/22 improved w ivf Hypoxia (Acute), Multifactoria Requiring 2L 02 to maintain sats >90% In setting of PNA as above Wean 02 as tolerated Acute Bronchitis Coronavirus nebs Hypertensive Urgency resolved Pneumonia (Acute), RLL Management as above Pericardial Effusion Noted on CTA, also noted on admission from 02/2018 Holding off on repeat TTE for now CAD Continue home Atorvastatin and Plavix COPD Continue prn Albuterol T2DM On Levemir, will continue Add SSI as IP Advanced Dementia Continue home Effexor, Risperidone Cecal Basecule identified on Abd XR obtained a CT A/P wich did not show it dispo: to [facility] today > 30 minutes on dc Subjective: sodium normalized Objective: Vital Signs Temp Pulse Resp BP Pulse Ox 36.2 C 60 14 106/51 L 99 10/22/18 12:01 10/22/18 12:01 10/22/18 12:01 10/22/18 12:01 10/22/18 12:01 Microbiology 10/17/18 08:59 Blood Culture - Final Blood 10/17/18 08:35 Blood Culture - Final Blood Laboratory Results 10/19/18 09:07 10/22/18 04:05 10/21/18 10/22/18 10/23/18 05:59 05:59 05:59 Intake Total 886 1306 150 Output Total 950 Balance 886 356 150 PT 13.9 SEC (12.0-15.0) 10/17/18 05:45 INR 1.05 (0.83-1.16) 10/17/18 05:45 - Physical Exam Constitutional: no apparent distress, appears nourished Eyes: PERRL, anicteric sclera Ears, Nose, Mouth, Throat: moist mucous membranes, hearing normal Cardiovascular: regular rate and rhythym, no murmur, rub, or gallop Respiratory: no respiratory distress, no rales or rhonchi Gastrointestinal: normoactive bowel sounds, soft, non-tender abdomen Genitourinary: No marin in urethra Skin: warm, normal color Musculoskeletal: full muscle strength Neurologic: AAOx3 ICD10 Worksheet Patient Problems: Problems Problem Status Onset CHF (congestive heart failure) Acute Elevated d-dimer Acute Hypoxia Acute Pneumonia Acute Shortness of breath Acute Elevated troponin Acute
--- NOTE | 2018-10-22 13:34 | PDIAF ---
- Diagnosis Diagnosis: sepsis, rll pneumonia, coronavirus Code Status: Full Code - Medication Management Additional Medication Instructions: levofloxacin 750 mg po daily on 10/24 only to complete 7 day course of QOD dosing. resume prn lasix 10/24 Discharge Medications: electronically signed and located in the Home Medication List. - Orders Services needed: Registered Nurse, Certified District Captain, Physical Therapy, Occupational Therapy, Speech Language Pathologist Isolation Type: Droplet Isolation - Follow Up Care Current Providers and Referrals: FLORENCIO JULIEN [Other] - As per Instructions
--- NOTE | 2018-10-22 14:51 | ASMTDCNOTE ---
Case Management Discharge Discharge Order Complete? Answers: Yes Patient to Obtain Answers: Other Notes: [facility] to arrange Medications Transport. Transportation Arranged Answers: Other Notes: [facility] to arrange. Faxed Final Orders Answers: Yes Agency/Facility Transfer Answers: Yes Report Printed & Faxed to Receiving Agency Family Notified Answers: Yes Discharge Comments Notes: Pt being discharged to [facility] today. [facility] scheduled transport for 4:30pm. [facility] notified. Pt reportedly has no family to notify. No other CM needs identified. Date Signed: 10/22/2018 02:50 PM Electronically Signed By:RIN Tolentino
--- NOTE | 2018-10-22 14:52 | ASDISCHSUM ---
Discharge Information Plan Status:SNF Medically Cleared to Leave: Discharge Date: D/C Disposition:Fdc Facility [facility] D/C Disposition: Projected Discharge Date:10/18/2018 11:00 AM Transportation at D/C:ALS/BLS Discharge Delay Reason: Follow-Up Date:10/18/2018 11:00 AM Discharge Slot: Final Diagnosis: Placement Information Referral Type:*Detention/SNF Referral ID:[id number] Provider Name:[facility] Address 1:[address] [place] [address] Address 2: City:[place] Selection Factors: State:[place] Patient Contact Information Contact Name:PITO Relationship:Other Address:[address] Work Phone: [facility]:[place] Alternate Phone: State/Zip Code:[place] [address] Email: Financial Information Financial Class:Medicare Advantage Plans Primary Plan Desc:[facility] [employer] Primary Plan Number:[id number] Secondary Plan Desc:[employer] Secondary Plan Number:[id number] Assessment Information [facility] CM Progress Note CM Note CM Note Notes: Pt is a 83 y/o female admitted for hypertension and shortness of breath. Pt has advance dementia. Pt resides at [facility]. Updates sent to [facility]. to follow. Plan: [facility] Date Signed: 10/17/2018 02:33 PM Electronically Signed By:RIN Adan LACE WICHO Acuity / Level of Answers: Yes Care: Did the patient have an inpatient admission? Comorbidities - select Answers: Chronic pulmonary disease all that apply Congestive heart failure Dementia Diabetes (uncontrolled or controlled) Opioid dependence / Chronic pain Other Notes: HTN # of Emergency department Answers: 1-2 visits in the last 6 months Score: 17 Date Signed: 10/17/2018 02:40 PM Electronically Signed By:Patricia Fletcher [facility] CM Progress Note CM Note CM Note Notes: Pt continues to progress medically. Able to return to [facility] once medically stable. CM to follow. Plan: [facility]. Date Signed: 10/21/2018 01:31 PM Electronically Signed By:RIN Tolentino Case Management Discharge Plan Note Case Management Discharge Discharge Order Complete? Answers: Yes Patient to Obtain Answers: Other Notes: [facility] to arrange Medications Transport. Transportation Arranged Answers: Other Notes: [facility] to arrange. Faxed Final Orders Answers: Yes Agency/Facility Transfer Answers: Yes Report Printed & Faxed to Receiving Agency Family Notified Answers: Yes Discharge Comments Notes: Pt being discharged to [facility] today. [facility] scheduled transport for 4:30pm. [facility] notified. Pt reportedly has no family to notify. No other CM needs identified. Date Signed: 10/22/2018 02:50 PM Electronically Signed By:RIN Tolentino Intervention Information
--- NOTE | 2018-11-07 12:25 | GDS ---
DISCHARGE DIAGNOSES: 1. Sepsis. 2. Right lower lobe pneumonia. 3. History of congestive heart failure. 4. Hyponatremia. 5. Acute hypoxemic respiratory failure. 6. Bronchitis with coronavirus. 7. Hypertensive urgency. 8. Pericardial effusion. 9. Coronary artery disease. 10. Chronic obstructive pulmonary disease. 11. Type 2 diabetes. 12. Advanced dementia. HOSPITAL COURSE: Please see admission history and physical by Dr. Nura Olmos. 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 CTA revealed dense right lower lobe pneu monia. She had septic physiology as evidenced by leukocytosis and source of infection. A CTA was ne gative for pulmonary embolism. She was hyponatremic, never lower than 128 while here. An abdominal film showed concern for cecal bascule. This was exonerated with CT. She was discharged to [facility] to complete a course of levofloxacin. /[id number]/MODL
[2018-11-15] MEDS ORDERED: CHOLECALCIFEROL VIT D3 50,000 UNIT CAP PO SCH (13:30)
== END 2018-10-22 16:32 | DRG 871 ==
LOC: EDUNIT# → OBSVTOIN 07:19 → F2W 09:30
PROVIDERS: ADMIT Internal Medicine; ATTEND Internal Medicine
DX: A41.9 Sepsis, unspecified organism (principal); J18.9 Pneumonia, unspecified organism; I11.0 Hypertensive heart disease with heart failure; I50.31 Acute diastolic (congestive) heart failure; I16.0 Hypertensive urgency; J96.00 Acute respiratory failure, unspecified whether with hypoxia or hypercapnia; J20.8 Acute bronchitis due to other specified organisms; B97.29 Other coronavirus as the cause of diseases classified elsewhere; E87.1 Hypo-osmolality and hyponatremia; N17.9 Acute kidney failure, unspecified; E87.5 Hyperkalemia; E11.9 Type 2 diabetes mellitus without complications; F03.90 Unspecified dementia, unspecified severity, without behavioral disturbance, psychotic disturbance, mood disturbance, and anxiety; J44.9 Chronic obstructive pulmonary disease, unspecified; I25.10 Atherosclerotic heart disease of native coronary artery without angina pectoris
CPT/HCPCS: 84484-ER; 96374; 97162-GP; 97530-GP; J0360; J1650; J1815; J1940; J1956; J3475; J7512; Q9967

== ENCOUNTER 2019-01-03 03:02 | Emergency (ER) | payer OTHER, MEDICAID ==
[2019-01-03 03:24] VITALS: BP 128/55
--- NOTE | 2019-01-03 03:44 | EDPHY ---
H & P Stated Complaint: low O2 sat Time Seen by Provider: 01/03/19 03:12 HPI/ROS: Chief Complaint: Cough, difficulty breathing, choking episode HPI: 83-year-old woman with a history of COPD, CHF, chronically oxygen dependent, recent admission in October for pneumonia. Patient was at a retirement facility tonight when she was drinking water and had a coughing episode. Patient was then complaining of call the breathing and noted her oxygen saturations were in the 70s. She was mildly diaphoretic. She was complaining of difficulty breathing so they called EMS. On arrival the patient had a diffuse expiratory wheezing in the give the patient a albuterol nebulizer. Patient now states she is feeling better and her breathing feels normal. No recent fevers or chills. No cough. No nausea or vomiting. Patient has a history of chronic shortness of breath and air hunger for which she receives p.r.n. Morphine. ROS: 10 systems were reviewed and were negative except those elements noted in the HPI. PMH: COPD, CHF, diabetes, peripheral vascular disease esophagitis, hyperlipidemia atrial fibrillation dementia anxiety Social History: No smoking, no alcohol, no recreational drug use Family History: non-contributory Physical Exam: Gen: Awake, Alert, No Distress HEENT: Nose: no rhinorrhea Eyes: PERRLA, EOMI Mouth: Moist mucosa Neck: Supple, no JVD Chest: nontender, mild diffuse expiratory wheeze which sounds upper airway in nature, no focal rales or rhonchi Heart: S1, S2 normal, no murmur Abd: Soft, non-tender, no guarding Back: no CVA tenderness, no midline tenderness Ext: no edema, non-tender Skin: no rash Neuro: CN II-XII intact, Sensation grossly intact, Strength 5/5 in bilateral upper and lower extremities - Personal History Tetanus Vaccine Date: 2007 - Medical/Surgical History Hx Asthma: Yes Hx Chronic Respiratory Disease: Yes Hx Diabetes: No Hx Cardiac Disease: Yes Hx Renal Disease: Yes Hx Cirrhosis: No Hx Alcoholism: No Hx HIV/AIDS: No Hx Splenectomy or Spleen Trauma: No Other PMH: anemia, dementia, peripheral vascular disease, HTN, CKD, bipolar, GERD, CHF, COPD, asthma - Social History Smoking Status: Unknown if ever smoked Constitutional: Initial Vital Signs Temperature (C) 36.6 C 03/22/19 03:20 Heart Rate 78 01/03/19 03:20 Respiratory Rate 20 01/03/19 03:20 Blood Pressure 128/55 H 01/03/19 03:20 O2 Sat (%) 95 01/03/19 03:20 O2 Delivery Mode Nasal Cannula O2 (L/minute) 4 Allergies/Adverse Reactions: oxycodone HCl [From OxyContin] Allergy (Unknown, Verified 01/03/19 03:20) aspirin [Aspirin] Allergy (Verified 01/03/19 03:20) codeine [Codeine] Allergy (Verified 01/03/19 03:20) NSAIDS (Non-Steroidal Anti-Inflamma [Nsaids] Allergy (Verified 01/03/19 03:20) oxybutynin [Oxybutynin] Allergy (Verified 01/03/19 03:20) Home Medications: Medication Instructions Recorded Acetaminophen [Tylenol 325mg (*)] 650 mg PO Q4 PRN 02/14/18 Albuterol [Proventil Inhaler HFA 2 puffs IH Q6 PRN 02/14/18 (*)] Bisacodyl [Dulcolax] 10 mg RC DAILY PRN 02/14/18 Carboxymethylcellulose 1% [Refresh 1 drop OP DAILY PRN 02/14/18 Celluvisc (*)] Carvedilol 6.25 mg PO BIDMEAL 02/14/18 Cholecalciferol Vit D3 [Vitamin D3 50,000 unit PO Q30D 02/14/18 (*)] Clopidogrel Bisulfate [Clopidogrel] 75 mg PO DAILY 02/14/18 Dextrose Oral Gel [Glucose Gel (*)] 15 gm PO Q1 PRN 02/14/18 Glucagon,Human Recombinant 1 mg IJ ONCE PRN 02/14/18 [Glucagon Emergency Kit] Insulin Detemir [Levemir] 6 unit SQ DAILY 02/14/18 Magnesium Hydroxide [Milk of 30 ml PO DAILY PRN 02/14/18 Magnesia] Nystatin [Nystop] 1 johanna TP BID PRN 02/14/18 Polyethylene Glycol 3350 [Miralax 17 gm PO DAILY PRN 02/14/18 17 gm (*)] Sennosides/Docusate Sodium 2 each PO DAILY 02/14/18 [Senna-S Tablet] Venlafaxine Xr [Effexor Xr] 150 mg PO DAILY 05/03/18 Ativan Solution 2mg/Ml 0.25 ml PO BID PRN 10/17/18 Atorvastatin Calcium [Lipitor 10 10 mg PO DAILY 10/17/18 mg (*)] Benzocaine/Menthol 15/4 [Cepacol 1 mg PO Q4HRS PRN 10/17/18 Lozenge] Carboxymethylcellulose 1% [Refresh 2 drop EACHEYE QID 10/17/18 Celluvisc (*)] Diltiazem [Cardizem Ir Q6hr] 30 mg PO BID 10/17/18 Herbals/Supplements -Info Only 1 ea PO DAILY 10/17/18 Lisinopril [Zestril 2.5 mg (*)] 2.5 mg PO DAILY 10/17/18 Morphine Sulfate 20mg/Ml Galilea 0.25 ml PO BID 10/17/18 Morphine Sulfate 20mg/Ml Galilea 0.25 ml PO Q4HRS PRN 10/17/18 OLANZapine [Zyprexa] 5 mg PO HS 10/17/18 morphINE SR [Ms Contin/Oramorph 15 15 mg PO HS 10/17/18 mg (*)] Furosemide [Lasix 20 MG (*)] 20 mg PO DAILY PRN #1 tab 10/22/18 Furosemide [Lasix 40 MG (*)] 40 mg PO DAILY #30 tab 10/22/18 levOFLOXACIN [levAQUIN (*)] 750 mg PO DAILY #1 tab 10/22/18 Medical Decision Making - Diagnostics Imaging Results: Chest x-ray shows no change from prior with poor inspiratory effort. ED Course/Re-evaluation: 83-year-old woman status post choking episode complaining of shortness of breath. She is normally on 3 L of oxygen. She is satting 97% now. With relaxation she is no longer wheezing. No focal findings on her exam. She is at her baseline. Evaluations here been unremarkable. Plan will be to discharge back to her retirement facility. - Data Points Laboratory Results: Laboratory Results 01/03/19 03:10 01/03/19 03:10 Sodium 137 mEq/L mEq/L (135-145) Potassium 4.6 mEq/L mEq/L (3.5-5.2) Chloride 95 mEq/L L mEq/L (97-110) Carbon Dioxide 35 mEq/l H mEq/l (22-31) Anion Gap 7 mEq/L mEq/L (6-14) BUN 19 mg/dL mg/dL (7-23) Creatinine 0.8 mg/dL mg/dL (0.6-1.0) Estimated GFR > 60 Glucose 185 mg/dL H mg/dL (70-100) Calcium 8.7 mg/dL mg/dL (8.5-10.4) Total Bilirubin 0.4 mg/dL mg/dL (0.1-1.4) AST 21 IU/L IU/L (14-46) ALT 18 IU/L IU/L (9-52) Alkaline Phosphatase 105 IU/L IU/L (38-126) Total Protein 7.1 g/dL g/dL (6.3-8.2) Albumin 3.3 g/dL L g/dL (3.5-5.0) Departure - Departure Disposition: Home, Routine, Self-Care Clinical Impression: Shortness of breath Condition: Good Instructions: Dyspnea (ED) Additional Instructions: Follow up with primary care physician in 2-3 days for further evaluation. Return to the emergency department for worsening difficulty breathing, cough, fevers, chills, chest pain, or any other concerns. Referrals: Patient,NotPresent [Primary Care Provider] - As per Instructions
[2019-01-03 04:12] LABS: PLATELET COUNT 207 10^3/uL (150-400)
== END 2019-01-03 06:32 | disposition home or self-care (01) ==
LOC: EDUNIT#
DX: R06.02 Shortness of breath (principal); J44.9 Chronic obstructive pulmonary disease, unspecified; I50.9 Heart failure, unspecified; E11.9 Type 2 diabetes mellitus without complications